=== PATIENT | female | born 1970 | race Caucasian/White ===

== ENCOUNTER 2019-06-02 12:57 | Outpatient (RCR) | payer OTHER, SELFPAY | END 2019-08-31 23:59 | disposition home or self-care (01) | LOC: ANHDMC 12:57 | PROVIDERS: PCP Family Medicine; Visit Provider Family Medicine | DX: E11.65 Type 2 diabetes mellitus with hyperglycemia (principal); Z71.89 Other specified counseling | CPT/HCPCS: G0108 ==

== ENCOUNTER 2020-04-06 08:25 | Outpatient (CLI) | payer BC, SELFPAY ==
--- NOTE | 2020-04-06 08:26 | ECG_ITS ---
Measurements Intervals [place] Rate: 71 P: -5 DC: 166 QRS: 21 QRSD: 85 T: 1 QT: 381 QTc: 414 Interpretive Statements SINUS RHYTHM BORDERLINE ST-T WAVE ABNORMALITY- INFERIOR LEADS BASELINE ARTIFACT- I, II, III, AVR, AVL, AVF BORDERLINE ECG Electronically Signed On 04-06-2020 8:47:37 CDT by Timur Nunez D.O.
[2020-04-06 09:02] LABS: Anion Gap 9 mmol/L (8-16); Blood Urea Nitrogen 10 mg/dL (7-17); Carbon Dioxide 27 mmol/L (22-30); Chloride 104 mmol/L (98-107); Estimated Glomerular Filt Rate > 60; Glucose 178 mg/dL (65-105); Potassium 4.1 mmol/L (3.4-5.0); Sodium 140 mmol/L (137-145)
[2020-04-06 09:05] LABS: Hematocrit 43.2 % (37.0-47.0); Hemoglobin 14.4 g/dL (12.0-15.0)
== END 2020-04-06 08:26 | disposition home or self-care (01) ==
PROVIDERS: Anesthesiology; PCP Family Medicine; Visit Provider Obstetrics & Gynecology Gynecology
DX: E11.59 Type 2 diabetes mellitus with other circulatory complications (principal); N92.0 Excessive and frequent menstruation with regular cycle; Z01.818 Encounter for other preprocedural examination; R94.31 Abnormal electrocardiogram [ECG] [EKG]
CPT/HCPCS: 36415; 80048; 85014; 85018; 93005

== ENCOUNTER 2020-04-09 02:56 | Outpatient (CLI) | payer BC, SELFPAY ==
[2020-04-09 18:02] LABS: SARS-CoV-2 RNA PCR Negative
== END 2020-04-09 02:57 | disposition home or self-care (01) ==
LOC: ANHCOVIDDT 02:57
PROVIDERS: PCP Family Medicine; Visit Provider Obstetrics & Gynecology Gynecology
DX: Z01.812 Encounter for preprocedural laboratory examination (principal); Z20.828 Contact with and (suspected) exposure to other viral communicable diseases
CPT/HCPCS: 87635; C9803; U0003

== ENCOUNTER 2020-04-12 01:58 | Day surgery (SDC) | payer BC, SELFPAY ==
[2020-03-29 12:23] VITALS: BMI 37.8
[2020-04-12] VITALS (8 sets, daily range): BP systolic 154–165; BP diastolic 68–93; PULSE 62–96; RESP 13–18; TEMP 36.2–37.1; O2SAT 95–100
[2020-04-12] MEDS: ACETAMINOPHEN 500 MG TABLET 1000 MG PO (07:16)
--- NOTE | 2020-04-12 07:17 | WPDANESEPPF ---
Anes - Initial Pre Proc Eval Procedure: Operation Date: 04/12/20 08:15 Proposed Procedures p Hysteroscopy Dilation and Curettage - Eulalia Chambers MD Date/Time: 04/12/20 07:17 Surgeon: Eulalia Chambers MD Pre Op Diagnosis: Menorrhagia Patient Data Age: 49 Gender: F Height: 5 ft 4 in Weight: 99.79 kg Allergies Allergy/AdvReac Type Severity Reaction Status Date / Time meperidine Allergy Severe Vomiting Verified 03/29/20 12:24 codeine Allergy Intermediate breathing Verified 03/29/20 12:25 difficulty midazolam [From Versed] AdvReac CRYING Verified 03/29/20 12:25 Home Medications Medication Instructions Recorded Confirmed Type cholecalciferol (vitamin D3) 50 2,000 unit PO DAILY 05/05/19 03/29/20 History mcg (2,000 unit) tablet diazepam 2 mg tablet 0.5 mg PO HS 05/05/19 03/29/20 History multivitamin 1 tablet PO DAILY 05/05/19 03/29/20 History omega-3 fatty acids 1,000 mg 1,000 mg PO DAILY 05/05/19 03/29/20 History capsule vitamin B12 500 mcg-folic acid 400 1 tablet PO DAILY 05/05/19 03/29/20 History mcg tablet empagliflozin 10 mg tablet 10 mg PO DAILY #90 tablet 10/31/19 03/29/20 Rx levothyroxine 150 mcg tablet 150 mcg PO DAILY #90 tablet 12/22/19 03/29/20 Rx sitagliptin 50 mg tablet 50 mg PO DAILY #90 tablet 03/08/20 03/29/20 Rx CoQ-10 1 tablet PO DAILY 03/29/20 03/29/20 History ferrous sulfate See Rx Instructions .ROUTE .COMPLEX 03/29/20 03/29/20 History omeprazole magnesium [Prilosec OTC] 20 mg PO QPM 03/29/20 03/29/20 History Patient hx anesthesia problems: none Family hx anesthesia problems: none PMFSH Past Medical History Medical History Adhesive capsulitis of right shoulder associated with type 2 diabetes mellitus (~2009) Cabezas's esophagus with esophagitis (~1994) Breathing problem (~2015) Class 2 severe obesity with serious comorbidity and body mass index (BMI) of 38.0 to 38.9 in adult (~12/2018) Class 3 severe obesity with serious comorbidity and body mass index (BMI) of 40.0 to 44.9 in adult (~2009) Encounter for comprehensive diabetic foot examination, type 2 diabetes mellitus (~12/2018) Encounter for counseling regarding immunization Hyperlipidemia, unspecified (~2005) Hypothyroidism (acquired) (~2005) OCD (obsessive compulsive disorder) (~2005) Vitamin B12 deficiency anemia due to intrinsic factor deficiency (~2015) Vitamin D deficiency, unspecified (~2015) Surgical History Surgical History Aftercare following left ankle joint replacement surgery (~1992) Fracture subluxation of perilunate joint of right wrist with routine healing (~2005) S/P cholecystectomy (~2002) S/P tonsillectomy (~1997) Family History Family History Mother Family history of osteoporosis Patient's mother is in good health Father Family history of lung cancer, Onset Age: 64 Acute myocardial infarction, Onset Age: 64 Grandparent Family history of lung cancer, Onset Age: 94 Family history of malignant neoplasm of breast, Onset Age: 63 Other Diabetes mellitus Family history of malignant neoplasm Social History Social History Social History: Immunization: TdaP: 2017; declines flu vaccine since ADR 2015 Smoking status: Never smoker Second hand tobacco smoke exposure: No Alcohol intake: never Substance use: never 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 Gender identity (if verbalized by the patient): Female Spiritual care concerns: No Agree to blood products: Yes Anes - Eval Final PreProcedure Day of Procedure 04/12/20 07:17 Patient weight: obese Heart: regular rate and rhythm Lungs: clear to auscultation Airway: Mallampati scale class 1 Neurological: alert an
--- NOTE | 2020-04-12 07:30 | PM.HPGS ---
History of Present Illness History of Present Illness Consent: Risks, benefits, and alternatives have been discussed and questions answered. Patient agrees to proceed with procedure. Chief complaint: Menorrhagia Narrative: Ny Shetty is a 49 year old female with prolonged bleeding episode lasting 3 weeks. Recommend work up and patient agrees. Plan hysteroscopy with D&C. Reviewed risks of infection, bleeding, and perforation. Discussed possible pathology. [facility] Past Medical History Medical History (Updated 04/12/20 @ 08:07 by Eulalia Chambers MD) Anxiety Cabezas's esophagus with esophagitis (~1994) Depression Hyperlipidemia, unspecified (~2005) Hypothyroidism (acquired) (~2005) OCD (obsessive compulsive disorder) (~2005) Type 2 diabetes mellitus Vitamin B12 deficiency anemia due to intrinsic factor deficiency (~2015) Vitamin D deficiency, unspecified (~2015) Surgical History Surgical History (Updated 04/12/20 @ 08:07 by Eulalia Chambers MD) S/P bilateral breast reduction S/P cholecystectomy (~2002) S/P tonsillectomy (~1997) S/P wrist surgery Status post hysteroscopic polypectomy 2014, 2018 Family History Family History Mother Family history of osteoporosis Patient's mother is in good health Father Family history of lung cancer, Onset Age: 64 Acute myocardial infarction, Onset Age: 64 Grandparent Family history of lung cancer, Onset Age: 94 Family history of malignant neoplasm of breast, Onset Age: 63 Other Diabetes mellitus Family history of malignant neoplasm Social History Social History Social History: Immunization: TdaP: 2017; declines flu vaccine since ADR 2015 Smoking status: Never smoker Second hand tobacco smoke exposure: No Alcohol intake: never Substance use: never 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 Gender identity (if verbalized by the patient): Female Spiritual care concerns: No Agree to blood products: Yes Meds Home Medications and Allergies Home Medications Medication Instructions Recorded Confirmed Type cholecalciferol (vitamin D3) 50 2,000 unit PO DAILY 05/05/19 03/29/20 History mcg (2,000 unit) tablet diazepam 2 mg tablet 0.5 mg PO HS 05/05/19 03/29/20 History multivitamin 1 tablet PO DAILY 05/05/19 03/29/20 History omega-3 fatty acids 1,000 mg 1,000 mg PO DAILY 05/05/19 03/29/20 History capsule vitamin B12 500 mcg-folic acid 400 1 tablet PO DAILY 05/05/19 03/29/20 History mcg tablet empagliflozin 10 mg tablet 10 mg PO DAILY #90 tablet 10/31/19 03/29/20 Rx levothyroxine 150 mcg tablet 150 mcg PO DAILY #90 tablet 12/22/19 03/29/20 Rx sitagliptin 50 mg tablet 50 mg PO DAILY #90 tablet 03/08/20 03/29/20 Rx CoQ-10 1 tablet PO DAILY 03/29/20 03/29/20 History ferrous sulfate See Rx Instructions .ROUTE .COMPLEX 03/29/20 03/29/20 History omeprazole magnesium [Prilosec OTC] 20 mg PO QPM 03/29/20 03/29/20 History Allergies Allergy/AdvReac Type Severity Reaction Status Date / Time meperidine Allergy Severe Vomiting Verified 04/12/20 07:47 codeine Allergy Intermediate breathing Verified 04/12/20 07:47 difficulty midazolam [From Versed] AdvReac CRYING Verified 04/12/20 07:47 Exam Const: General: comfortable : External Female Exam: other (errythema, edema) Speculum Exam - Vagina: vaginal bleeding Speculum Exam - Cervix: normal appearance of the cervix Bimanual exam- vagina & uterus: normal bimanual exam Assessment and Plan Assessment and plan (1) Menorrhagia: Code(s): N92.0 - Excessive and frequent menstruation with regular cycle Status: Acute Assessment and Plan: Plan to proceed with hysteroscopy with D&C
[2020-04-12] MEDS: LACTATED RINGERS 1,000 ML 30 ML IV CONT (07:36)
[2020-04-12 07:39] LABS: Glucose Point of Care 181 (65-105)
--- NOTE | 2020-04-12 08:07 | WPDHPUPDATE1 ---
History and Physical Update Update Date/Time: 04/12/20 08:07 History and Physical has been reviewed, including an updated exam of the patient. There are NO changes in the patient's condition. Risks, benefits, and alternatives have been discussed and questions answered. Patient agrees to proceed with procedure.
--- NOTE | 2020-04-12 09:07 | SUR.OPER ---
EBL:10cc
--- NOTE | 2020-04-12 09:08 | PM.PROC ---
Procedure Note - Detailed Date of procedure: 04/12/20 Pre-op diagnosis: Menorrhagia Post-op diagnosis: same Procedure performed: hysteroscopy with myosure resection of polyp and D&C Description of procedure: The patient is taken to the operating room and placed in the dorsal lithotomy position under anesthesia. She was prepped and draped in usual sterile manner. The bivalve speculum was placed in the vagina and the cervix grasped with a tenaculum anteriorly. The uterus is sounded to 9cm and the cervix serially dilated with Hegars. The diagnostic hysteroscope was placed with the stated findings. The MyoSure device is opened and placed. Under direct visualization the large polyp is removed using the MyoSure device. The hysteroscope was removed and a sharp curette is used to sharply curette the endometrium until a good uterine cry is noted in all areas. All instruments were then removed. Anesthesia: MAC and local Surgeon: Eulalia Chambers MD Estimated blood loss (mL): 5 Drains: No Packing: No Pathology: yes (endometrial curettings and shavings) Complications: No immediate complications Condition: stable Disposition: PACU Findings: uterus 9 cm; large polyp from right lateral uterine side wall; otherwise grossly normal appearing endometrium
[2020-04-12] MEDS: ONDANSETRON INJ 4 MG/2 ML VIAL IV PUSH (09:55)
[2020-04-12 10:09] LABS: Glucose Point of Care 162 (65-105)
[2020-04-12] MEDS: FAMOTIDINE 20 MG/2 ML VIAL IV PUSH (11:09)
== END 2020-04-12 12:10 | disposition home or self-care (01) ==
PROVIDERS: PCP Family Medicine; Visit Provider Obstetrics & Gynecology Gynecology
PROC: 0U5B8ZZ Destruction of Endometrium, Via Natural or Artificial Opening Endoscopic (ICD-10-PCS; CPT 58563; principal; 2020-04-12 08:15)
DX: N92.0 Excessive and frequent menstruation with regular cycle (principal); E11.9 Type 2 diabetes mellitus without complications; E78.5 Hyperlipidemia, unspecified; E03.9 Hypothyroidism, unspecified; E55.9 Vitamin D deficiency, unspecified; D51.0 Vitamin B12 deficiency anemia due to intrinsic factor deficiency; F42.8 Other obsessive-compulsive disorder; Z79.84 Long term (current) use of oral hypoglycemic drugs; E66.9 Obesity, unspecified; Z68.38 Body mass index [BMI] 38.0-38.9, adult
CPT/HCPCS: 58558; 88305; A9270; J1885; J2405; J2704; J3010; J7030; J7120

== ENCOUNTER 2020-08-18 15:47 | Outpatient (CLI) | payer BC, SELFPAY | END 2020-08-18 15:48 | disposition home or self-care (01) | LOC: ANHCOVIDVC 15:47 | PROVIDERS: PCP Family Medicine | DX: Z23 Encounter for immunization (principal) | CPT/HCPCS: 0001A; 91300 ==

== ENCOUNTER 2020-09-08 09:24 | Outpatient (CLI) | payer BC, SELFPAY ==
--- NOTE | ~2020-09-08 | US_ITS ---
EXAMINATION: US pelvic complete w TV EXAM DATE: 09/08/2020 10:03 INDICATION: Pelvic inflammatory disease. TECHNIQUE: Pelvic transabdominal and transvaginal sonogram was performed. There are multiple graysca le and Doppler images available for interpretation. Comparison is made to prior examination from 06/23. FINDINGS: Uterus measures 9.4 x 4.1 x 5.5 cm, is anteverted with small posterior myometrial fibroid measuring up to 1.7 cm. Endometrial stripe measures 5 mm, within normal limits. There is no free pel hallie fluid. Right adnexa: The ovary measures 2.4 x 1.6 x 1.8 cm and is morphologically normal. Ovarian vascular f low confirmed. Left adnexa: The ovary measures 3.0 x 2.1 x 2.1 cm and is morphologically normal. Ovarian vascular fl ow confirmed. IMPRESSION: Small fibroid. No evidence of hydrosalpinx or tubo-ovarian abscess. Reviewed, dictated and finalized at location A.
== END 2020-09-08 09:25 | disposition home or self-care (01) ==
PROVIDERS: PCP Family Medicine; Visit Provider Obstetrics & Gynecology Gynecology
DX: D25.9 Leiomyoma of uterus, unspecified (principal); N73.9 Female pelvic inflammatory disease, unspecified
CPT/HCPCS: 76830; 76856

== ENCOUNTER 2020-09-09 13:17 | Outpatient (CLI) | payer BC, SELFPAY | END 2020-09-09 13:18 | disposition home or self-care (01) | LOC: ANHCOVIDVC 13:17 | PROVIDERS: PCP Family Medicine | DX: Z23 Encounter for immunization (principal) | CPT/HCPCS: 0002A; 91300 ==

== ENCOUNTER → 2020-10-22 10:19 | Outpatient (CLI) | payer BC, SELFPAY ==
--- NOTE | ~2020-10-22 | MM_ITS ---
EXAMINATION: MM screening [facility] BI w darlene HISTORY: Screening mammogram TECHNIQUE: Craniocaudal and mediolateral oblique 3-D tomosynthesis images were obtained and synthetic 2-D images were generated. CAD analysis was submitted and interpreted. COMPARISON: 05/23/2019, 03/22/2018, 06/02/2017 BREAST PARENCHYMAL COMPOSITION: There are scattered areas of fibroglandular density. FINDINGS: There is no evidence of suspicious mass, calcification, or architectural distortion to sugg est malignancy in either breast. There has been no suspicious interval change. IMPRESSION: 1. No mammographic evidence of malignancy. 2. Recommend routine screening mammography in one year. BI-RADS Category 1: Negative Reviewed, dictated and finalized at location A.
== END ==
PROVIDERS: PCP Nurse Practitioner; Visit Provider Obstetrics & Gynecology Gynecology
DX: Z12.31 Encounter for screening mammogram for malignant neoplasm of breast (principal)
CPT/HCPCS: 77063; 77067

== ENCOUNTER → 2021-10-24 16:13 | Outpatient (CLI) | payer BC, SELFPAY ==
--- NOTE | ~2021-10-24 | MM_ITS ---
EXAMINATION: MM screening [facility] BI w darlene HISTORY: Screening mammogram TECHNIQUE: Craniocaudal and mediolateral oblique 3-D tomosynthesis images were obtained and synthetic 2-D images were generated. CAD analysis was submitted and interpreted. COMPARISON: 10/22/2020, 05/23/2019, 03/22/2018 BREAST PARENCHYMAL COMPOSITION: There are scattered areas of fibroglandular density. FINDINGS: Scattered benign-appearing calcifications are present. There is no suspicious mass, calcifi cation, or architectural distortion to suggest malignancy in either breast. There has been no suspici ous interval change. IMPRESSION: 1. No mammographic evidence of malignancy. 2. Recommend routine screening mammography in one year. BI-RADS Category 2: Benign finding(s). Reviewed, dictated and finalized at location A.
== END ==
PROVIDERS: PCP Nurse Practitioner; Visit Provider Obstetrics & Gynecology Gynecology
DX: Z12.31 Encounter for screening mammogram for malignant neoplasm of breast (principal)
CPT/HCPCS: 77063; 77067

== ENCOUNTER 2022-03-30 01:46 | Day surgery (SDC) | payer BC, SELFPAY ==
[2022-03-16 12:47] VITALS: BMI 40.2
--- NOTE | 2022-03-29 14:28 | PM.HPGS ---
History of Present Illness History of Present Illness Consent: Risks, benefits, and alternatives have been discussed and questions answered. Patient agrees to proceed with procedure. Chief complaint: hx colon polyps, neoplasm, falcon's Esophagus Narrative: Ny Shetty is a 51 year old female With chronic acid reflux. She has a history of having Barretts esophagus. Biopsy done at the time of her last EGD in 2019 did not show intestinal metaplasia. She has history of colon polyps. Review of Systems Review of Systems: All systems reviewed & are unremarkable except as noted in HPI and below PMFSH Past Medical History Medical History Anxiety Falcon's esophagus with esophagitis (~1994) Bursitis of right shoulder (~2009) Depression Hyperlipidemia, unspecified (~2005) Hypothyroidism (acquired) (~2005) OCD (obsessive compulsive disorder) (~2005) Skin neoplasm Type 2 diabetes mellitus Vitamin B12 deficiency anemia due to intrinsic factor deficiency (~2015) Vitamin D deficiency, unspecified (~2015) Surgical History Surgical History S/P bilateral breast reduction S/P cholecystectomy (~2002) S/P tonsillectomy (~1997) S/P wrist surgery Status post cervical polyp removal Status post hysteroscopic polypectomy 2014, 2018 Family History Family History Mother Family history of osteoporosis Patient's mother is in good health Father Family history of lung cancer, Onset Age: 64 Acute myocardial infarction, Onset Age: 64 Grandparent Family history of lung cancer, Onset Age: 94 Family history of malignant neoplasm of breast, Onset Age: 63 Other Diabetes mellitus Family history of malignant neoplasm Social History Social History Social History: Immunization: TdaP: 2017; declines flu vaccine since ADR 2015 Smoking status: Never smoker Second hand tobacco smoke exposure: No Alcohol intake: never Substance use: never Substance use type: does not use Living arrangements: alone 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 Gender identity (if verbalized by the patient): Female Spiritual care concerns: No Agree to blood products: Yes Meds Home Medications and Allergies Home Medications Medication Instructions Recorded Confirmed Type cholecalciferol (vitamin D3) 50 2,000 unit PO DAILY 05/05/19 03/30/22 History mcg (2,000 unit) tablet multivitamin 1 tablet PO DAILY 05/05/19 03/30/22 History omega-3 fatty acids 1,000 mg 1,000 mg PO DAILY 05/05/19 03/30/22 History capsule vitamin B12 500 mcg-folic acid 400 1 tablet PO DAILY 05/05/19 03/30/22 History mcg tablet CoQ-10 100 mg PO 2XW 03/29/20 03/30/22 History semaglutide 0.25 mg or 0.5 mg (2 0.5 mg subcut DAILY 10/25/20 03/30/22 History mg/1.5 mL) subcutaneous pen injector blood sugar diagnostic (OneTouch #100 ea 02/11/21 03/30/22 Rx Ultra Test strips) diazepam 2 mg tablet (Valium) 0.5 mg PO HS #30 tabs 10/31/21 03/30/22 Rx glimepiride 1 mg tablet 2 mg PO BID 12/06/21 03/30/22 History omeprazole 20 mg capsule,delayed 20 mg PO DAILY 12/06/21 03/30/22 History release Iron (ferrous sulfate) See Rx Instructions .Route .COMPLEX 03/16/22 03/30/22 History Lacto no.51-B.animalis 30 billion 1 cap PO 2XW 03/16/22 03/30/22 History cell-inulin 50 mg capsule,delay rel (Fortify Women Probiotic) ascorbate sodium (vitamin C) 30 mg PO 2XW 03/16/22 03/30/22 History folic acid 400 mcg tablet 0.4 mg PO 2XW 03/16/22 03/30/22 History ketorolac 10 mg tablet 10 mg PO DAILY PRN Pain 03/16/22 03/30/22 History levothyroxine 150 mcg tablet 150 mcg PO DAILY 03/16/22 03/30/22 History (Synthroid) milk thistle 140 mg capsule 140 mg PO 2XW 03/16/22 03/30/22 History s
[2022-03-30 06:48] VITALS: BP 148/81; PULSE 92; RESP 16; TEMP 36.9; O2SAT 99; BMI 39.9
[2022-03-30 07:05] LABS: Glucose Point of Care 183 mg/dl (65-105)
[2022-03-30] MEDS: LACTATED RINGERS 1,000 ML 150 ML IV CONT (07:05)
--- NOTE | 2022-03-30 08:01 | WPDANESEPPF ---
Anes - Initial Pre Proc Eval Procedure: Operation Date: 03/30/22 08:00 Proposed Procedures p Esophagogastroduodenoscopy & Screening Colonoscopy - Wilton Alonso MD Date/Time: 03/30/22 08:01 Surgeon: Wilton Alonso MD Pre Op Diagnosis: hx colon polyps, neoplasm, falcon's Esophagus Patient Data Age: 51 Gender: F Height: 1.63 m Weight: 105.4 kg Last Vital Signs Temp 98.4 F 03/30/22 06:48 Pulse 92 03/30/22 06:48 Resp 16 03/30/22 06:48 BP 148/81 H 03/30/22 06:48 Pulse Ox 99 03/30/22 06:48 O2 Del Method Room Air 03/30/22 06:48 Allergies Allergy/AdvReac Type Severity Reaction Status Date / Time codeine Allergy Intermediate breathing Verified 03/30/22 06:46 difficulty meperidine AdvReac Severe Vomiting Verified 03/30/22 06:46 Home Medications Medication Instructions Recorded Confirmed Type cholecalciferol (vitamin D3) 50 2,000 unit PO DAILY 05/05/19 03/30/22 History mcg (2,000 unit) tablet multivitamin 1 tablet PO DAILY 05/05/19 03/30/22 History omega-3 fatty acids 1,000 mg 1,000 mg PO DAILY 05/05/19 03/30/22 History capsule vitamin B12 500 mcg-folic acid 400 1 tablet PO DAILY 05/05/19 03/30/22 History mcg tablet CoQ-10 100 mg PO 2XW 03/29/20 03/30/22 History semaglutide 0.25 mg or 0.5 mg (2 0.5 mg subcut DAILY 10/25/20 03/30/22 History mg/1.5 mL) subcutaneous pen injector blood sugar diagnostic (OneTouch #100 ea 02/11/21 03/30/22 Rx Ultra Test strips) diazepam 2 mg tablet (Valium) 0.5 mg PO HS #30 tabs 10/31/21 03/30/22 Rx glimepiride 1 mg tablet 2 mg PO BID 12/06/21 03/30/22 History omeprazole 20 mg capsule,delayed 20 mg PO DAILY 12/06/21 03/30/22 History release Iron (ferrous sulfate) See Rx Instructions .Route .COMPLEX 03/16/22 03/30/22 History Lacto no.51-B.animalis 30 billion 1 cap PO 2XW 03/16/22 03/30/22 History cell-inulin 50 mg capsule,delay rel (Fortify Women Probiotic) ascorbate sodium (vitamin C) 30 mg PO 2XW 03/16/22 03/30/22 History folic acid 400 mcg tablet 0.4 mg PO 2XW 03/16/22 03/30/22 History ketorolac 10 mg tablet 10 mg PO DAILY PRN Pain 03/16/22 03/30/22 History levothyroxine 150 mcg tablet 150 mcg PO DAILY 03/16/22 03/30/22 History (Synthroid) milk thistle 140 mg capsule 140 mg PO 2XW 03/16/22 03/30/22 History selenium 100 mcg capsule 100 mcg PO 2XW 03/16/22 03/30/22 History Laboratory Tests 03/30/22 06:57 POC Capillary Glucose 183 mg/dl H mg/dl (65-105) Patient hx anesthesia problems: none Family hx anesthesia problems: none Results Review: All pre-operative results and documents have been reviewed as part of the pre-operative evaluation. [facility] Past Medical History Medical History Anxiety Falcon's esophagus with esophagitis (~1994) Bursitis of right shoulder (~2009) Depression Hyperlipidemia, unspecified (~2005) Hypothyroidism (acquired) (~2005) OCD (obsessive compulsive disorder) (~2005) Skin neoplasm Type 2 diabetes mellitus Vitamin B12 deficiency anemia due to intrinsic factor deficiency (~2015) Vitamin D deficiency, unspecified (~2015) Surgical History Surgical History S/P bilateral breast reduction S/P cholecystectomy (~2002) S/P tonsillectomy (~1997) S/P wrist surgery Status post cervical polyp removal Status post hysteroscopic polypectomy 2014, 2018 Family History Family History Mother Family history of osteoporosis Patient's mother is in good health Father Family history of lung cancer, Onset Age: 64 Acute myocardial infarction, Onset Age: 64 Grandparent Family history of lung cancer, Onset Age: 94 Family history of malignant neoplasm of breast, Onset Age: 63 Other Diabetes mellitus Family history of malignant neoplasm Social History Social History (Reviewed 03/30/22 @ 07
--- NOTE | 2022-03-30 08:16 | SUR.OPER ---
EGD: [id number] COLON: [id number]
[2022-03-30 08:33] VITALS: BP 128/78; PULSE 78; RESP 19; O2SAT 99
[2022-03-30 08:43] VITALS: BP 150/75; PULSE 78; RESP 18; O2SAT 100
[2022-03-30 08:53] VITALS: BP 133/81; PULSE 77; RESP 18; O2SAT 100
== END 2022-03-30 09:10 | disposition home or self-care (01) ==
PROVIDERS: PCP Nurse Practitioner; Visit Provider Internal Medicine Gastroenterology
PROC: 0DJ08ZZ Inspection of Upper Intestinal Tract, Via Natural or Artificial Opening Endoscopic (ICD-10-PCS; CPT 43235; principal; 2022-03-30 08:00)
DX: Z12.11 Encounter for screening for malignant neoplasm of colon (principal); Z86.010 Personal history of colon polyps; K21.9 Gastro-esophageal reflux disease without esophagitis; E11.9 Type 2 diabetes mellitus without complications; E78.5 Hyperlipidemia, unspecified; E03.9 Hypothyroidism, unspecified; E55.9 Vitamin D deficiency, unspecified; D51.0 Vitamin B12 deficiency anemia due to intrinsic factor deficiency; F42.8 Other obsessive-compulsive disorder; F41.9 Anxiety disorder, unspecified; F32.A Depression, unspecified; Z87.19 Personal history of other diseases of the digestive system; Z79.899 Other long term (current) drug therapy; Z79.84 Long term (current) use of oral hypoglycemic drugs; E66.01 Morbid (severe) obesity due to excess calories; Z68.39 Body mass index [BMI] 39.0-39.9, adult
CPT/HCPCS: 45378; 43239; 82948; 88305; J2704; J3010; J7120

== ENCOUNTER 2022-06-05 12:07 | Observation (INO) | payer BC, SELFPAY ==
[2022-06-05] VITALS (13 sets, daily range): BP systolic 104–188; BP diastolic 60–96; PULSE 66–99; RESP 13–19; TEMP 36.1–36.4; O2SAT 92–100; BMI 39.3
--- NOTE | ~2022-06-05 | XR_ITS ---
EXAMINATION: XR retrograde pyelo w/stent LT DATE: 06/05/2022 16:40 RAISIN WASHER INDICATION: Left retrograde w/ stent placement . TECHNIQUE: 4 fluoroscopic images of the abdomen and pelvis were obtained during left retrograde pyelo graphy with stent placement performed by the surgeon. I was not present in the operating room. Fluoro scopy exposure time was 48.2 seconds. DAP [id number] mGym2. COMPARISON: CT abdomen pelvis, same date FINDINGS: Small calcification projecting over the left urinary bladder in the attendant self service store view may represent the prev iously detected left UVJ stone. Wire access to the left collecting system followed by stent deploymen t with the proximal coil in a lower pole calyx and the distal coil overlying the bladder. IMPRESSION: Fluoroscopic documentation of left retrograde pyelography with stent placement. Please refer to the o perative note for complete procedural details . Reviewed, dictated and finalized at location K. IN WASHER IMPRESSION: Fluoroscopic documentation of left retrograde pyelography with stent placement. Please refer to the operative note for complete procedural details .
--- NOTE | ~2022-06-05 | CT_ITS ---
EXAMINATION: CT abdomen pelvis wo con DATE: 06/05/2022 13:18 INDICATION: Left flank pain, nausea and vomiting TECHNIQUE: Computed tomography (CT) of the abdomen and pelvis was performed without intravenous contr ast. Automated exposure control and iterative reconstruction technique were employed. The dose-length product was 1424.69 mGy-cm. COMPARISON: None FINDINGS: Small calcified right lower lobe nodule consistent with old granulomatous disease. Heart size is norm al. No pericardial or pleural effusion. Small sliding-type hiatal hernia. There is an ill-defined gabriella roximately 3-3.5 cm region of decreased hepatic attenuation along the genesis hepatis with location and appearance suggesting focal fat. Cholecystectomy clips at the gallbladder fossa. Mild splenomegaly m easuring 15.4 cm in maximal length which is likely related to body habitus. Pancreas, bilateral adren al glands and right kidney are normal. 3 mm at least partially obstructing stone at the left ureterov esicular junction with mild left hydroureteronephrosis and minimal stranding about the distal left ur eter. There is an additional 1 mm nonobstructing stone in a lower pole calyx of the left kidney. No r ight-sided urolithiasis. 11 mm exophytic cyst at the lower pole of the left kidney. Small bowel and a ppendix are normal. There is fatty infiltration of the wall of the proximal colon likely related to b tirso habitus. There are few scattered clonic diverticula without adjacent inflammatory change to sugge st diverticulitis. Decompressed bladder, anteverted uterus and bilateral adnexa are unremarkable. No free intraperitoneal gas or fluid. No pathologically enlarged abdominal or pelvic lymphadenopathy. Mi ld thoracolumbar spondylosis. IMPRESSION: 1. Likely at least partially obstructing 3 mm stone at the left ureterovesicular junction with mild l eft hydroureteronephrosis and minimal periureteral stranding. Correlate with urinalysis to exclude as sociated ascending urinary tract infection. 2. 3-3.5 cm ill-defined region of decreased attenuation along the genesis hepatis most likely related t o focal hepatic steatosis but would recommend further evaluation with pre and postcontrast MRI. 2. Small sliding-type hiatal hernia. Reviewed, dictated and finalized at location A. ATING COST CLERK IMPRESSION: 1. Likely at least partially obstructing 3 mm stone at the left ureterovesicula r junction with mild left hydroureteronephrosis and minimal periureteral strand ing. Correlate with urinalysis to exclude associated ascending urinary tract in fection. 2. 3-3.5 cm ill-defined region of decreased attenuation along the genesis hepatis most likely related to focal hepatic steatosis but would recommend further myaito luation with pre and postcontrast MRI. 2. Small sliding-type hiatal hernia.
[2022-06-05 13:04] LABS: Basophils Absolute Auto 0.1 K/mm3 (0.0-0.1); Basophils Percent Auto 0.5 % (0.2-1.2); Eosinophils Absolute Auto 0.2 K/mm3 (0-0.3); Eosinophils Percent Auto 1.4 % (0-4.4); Hematocrit 37.4 % (37.0-47.0); Hemoglobin 12.3 g/dL (12.0-15.0); Immature Granulocyte Absolute 0.05 K/mm3 (0.00-0.031); Immature Granulocyte Percent A 0.5 % (0-0.5); Lymphocytes Absolute Auto 2.95 K/mm3 (0.9-3.2); Lymphocytes Percent Auto 27.4 % (18.3-44.2); Mean Corpuscular HGB Conc 32.9 g/dl (32-36); Mean Corpuscular Hemoglobin 28.9 pg (26-34); Mean Corpuscular Volume 87.8 fl (80-100); Mean Platelet Volume 11.7 fl (7.4-10.4); Monocytes Absolute Auto 0.8 K/mm3 (0.1-0.6); Monocytes Percent Auto 7.2 % (2.6-8.5); Neutrophils Absolute Auto 6.8 K/mm3 (1.3-6.7); Platelet Count Result 235 k/mm3 (150-375); Red Blood Count 4.26 M/mm3 (4.2-5.4); Red Cell Distribution Width 13.4 % (11.5-14.5); White Blood Count 10.8 K/mm3 (4.5-10.0)
--- NOTE | 2022-06-05 13:04 | ED.ABDPAIN ---
HPI - Abdominal Pain General Chief Complaint: Abdominal Pain Stated Complaint: n/v possible kidney stone Time Seen by Provider: 06/05/22 12:47 History of Present Illness HPI narrative: Patient is a 31-year-old female here for evaluation of left flank pain over the past day. Patient states the pain starts in her left flank and radiates around to her groin. Also reports nausea and vomiting. Pain is severe in nature. She has not taken any medicine for her pain. No history of kidney stones. No fevers, chills, dysuria, urgency or frequency. No chest pain or shortness of breath. Patient states she is currently on her menstrual cycle and unable to assess for blood in her urine. Related Data Home Medications Medication Instructions Recorded Confirmed cholecalciferol (vitamin D3) 50 2,000 unit PO DAILY 05/05/19 06/05/22 mcg (2,000 unit) tablet multivitamin 1 tablet PO DAILY 05/05/19 06/05/22 omega-3 fatty acids 1,000 mg 1,000 mg PO DAILY 05/05/19 06/05/22 capsule vitamin B12 500 mcg-folic acid 400 1 tablet PO DAILY 05/05/19 06/05/22 mcg tablet CoQ-10 100 mg PO WEEKLY 03/29/20 06/05/22 semaglutide 0.25 mg or 0.5 mg (2 0.75 mg subcut WEEKLY 10/25/20 06/05/22 mg/1.5 mL) subcutaneous pen injector omeprazole 20 mg capsule,delayed 20 mg PO DAILY 12/06/21 06/05/22 release Iron (ferrous sulfate) See Rx Instructions .Route .COMPLEX 03/16/22 06/05/22 Lacto no.51-B.animalis 30 billion 1 cap PO DAILY 03/16/22 06/05/22 cell-inulin 50 mg capsule,delay rel (Fortify Women Probiotic) ascorbate sodium (vitamin C) 30 mg PO 2XW 03/16/22 06/05/22 ketorolac 10 mg tablet 10 mg PO DAILY PRN Pain 03/16/22 06/05/22 levothyroxine 150 mcg tablet 150 mcg PO DAILY 03/16/22 06/05/22 (Synthroid) selenium 100 mcg capsule 100 mcg PO WEEKLY 03/16/22 06/05/22 glimepiride 2 mg tablet 4 mg PO BID 05/09/22 06/05/22 Allergies Allergy/AdvReac Type Severity Reaction Status Date / Time codeine Allergy Intermediate breathing Verified 05/09/22 13:30 difficulty meperidine AdvReac Severe Vomiting Verified 05/09/22 13:30 Review of Systems Review of Systems: Gen.: Denies fevers or chills Eyes: Denies eye pain or visual change ENT: Denies congestion Respiratory: Denies shortness of breath or cough CV: Denies chest pain or palpitations GI: Reports nausea and vomiting. Denies abdominal pain or diarrhea denies burning, urgency, frequency or hematuria Musculoskeletal: Reports left flank pain Neuro: Denies numbness, tingling, weakness or focal weakness Skin: Denies rash Except as documented, all other systems reviewed and negative [facility] Past Medical History Medical History Anxiety Cabezas's esophagus with esophagitis (~1994) Bursitis of right shoulder (~2009) Class 3 severe obesity with serious comorbidity and body mass index (BMI) of 40.0 to 44.9 in adult (~2009) Depression Hyperlipidemia, unspecified (~2005) Hypothyroidism (acquired) (~2005) Morbid obesity Obesity OCD (obsessive compulsive disorder) (~2005) Palpitations Skin neoplasm Type 2 diabetes mellitus Vitamin B12 deficiency anemia due to intrinsic factor deficiency (~2015) Vitamin D deficiency, unspecified (~2015) Surgical History Surgical History S/P bilateral breast reduction S/P cholecystectomy (~2002) S/P tonsillectomy (~1997) S/P wrist surgery Status post cervical polyp removal Status post hysteroscopic polypectomy 2014, 2018 Family History Family History Mother Family history of osteoporosis Patient's mother is in good health Father Family history of lung cancer, Onset Age: 64 Acute myocardial infarction, Onset Age: 64 Grandparent Family history of lung cancer, Onset Age: 94 Family history of malignant neoplasm of breast, Onset Age: 63 Other Diabetes mellitus
--- NOTE | 2022-06-05 13:10 | PC.NURSE ---
pt. to ct
[2022-06-05 13:12] LABS: Add Urine Microscopic? YES; Appearance Urine Cloudy (Clear); Bilirubin Urine 1+ (Negative); Blood Urine 3+ (Negative); Glucose Urine UA Negative (Negative); Ketones Urine Trace mg/dL (Negative); Leukocyte Esterase Ur Negative LEU/UL (Negative); Nitrate Urine Positive (Negative); Protein Urine 1+ mg/dL (Negative); Specific Grav Ur >= 1.030 (1.001-1.035); Urobilinogen Urine 0.2 mg/dL (<2.0); pH Urine 5.5 (5.0-9.0)
[2022-06-05] MEDS: SODIUM CHLORIDE 0.9% IV 1,000 ML 999 ML IV CONT (13:21)
[2022-06-05] MEDS: ONDANSETRON INJ 4 MG/2 ML VIAL IV PUSH (13:22)
[2022-06-05] MEDS: HYDROmorphone HCL INJ (*CRX) 1 MG/ML SYR 0.5 MG IV PUSH (13:23)
[2022-06-05 13:27] LABS: Mucus Urine Rare /lpf; RBC Urine >75 /hpf (0-2); WBC Urine >75 /hpf
[2022-06-05 13:34] LABS: Color Urine Yellow (Yellow)
[2022-06-05] MEDS: HYDROmorphone HCL INJ (*CRX) 1 MG/ML SYR IV PUSH (13:55)
[2022-06-05 14:47] LABS: Alanine Aminotransferase 23 U/L (6-35); Albumin Level 4.2 g/dL (3.5-5.1); Alkaline Phosphatase 97 U/L (38-126); Anion Gap 11 mmol/L (8-16); Aspartate Amino Transferase 25 U/L (14-36); Bilirubin,Total 0.4 mg/dL (0.2-1.3); Blood Urea Nitrogen 12 mg/dL (7-17); Calcium 8.6 mg/dL (8.4-10.2); Carbon Dioxide 21 mmol/L (22-30); Chloride 104 mmol/L (98-107); Estimated CRCL calculation 95 ml/min; Estimated Glomerular Filt Rate > 60; Glucose 224 mg/dL (65-110); Potassium 3.8 mmol/L (3.4-5.0); Sodium 136 mmol/L (137-145)
[2022-06-05 15:04] LABS: Influenza A QL RT-PCR Negative (Negative); Influenza B QL RT-PCR Negative (Negative); SARS-CoV-2 RNA PCR Negative
--- NOTE | 2022-06-05 15:32 | WPDANESEPP ---
Anes - Eval Pre Procedure Procedure: Left cysto with stent placement Date/Time: 06/05/22 15:32 Surgeon: Mann Preop Diagnosis: Left side stone Pre Op Diagnosis: n/v possible kidney stone Patient Data Age: 51 Gender: F Height: 1.63 m Weight: 104.33 kg Last Vital Signs Temp 97.5 F L 06/05/22 12:08 Pulse 88 06/05/22 13:47 Resp 19 06/05/22 13:47 BP 185/87 H 06/05/22 13:47 Pulse Ox 99 06/05/22 14:00 Allergies Allergy/AdvReac Type Severity Reaction Status Date / Time codeine Allergy Intermediate breathing Verified 05/09/22 13:30 difficulty meperidine AdvReac Severe Vomiting Verified 05/09/22 13:30 Home Medications Medication Instructions Recorded Confirmed Type cholecalciferol (vitamin D3) 50 2,000 unit PO DAILY 05/05/19 05/09/22 History mcg (2,000 unit) tablet multivitamin 1 tablet PO DAILY 05/05/19 05/09/22 History omega-3 fatty acids 1,000 mg 1,000 mg PO DAILY 05/05/19 05/09/22 History capsule vitamin B12 500 mcg-folic acid 400 1 tablet PO DAILY 05/05/19 05/09/22 History mcg tablet CoQ-10 100 mg PO 2XW 03/29/20 05/09/22 History semaglutide 0.25 mg or 0.5 mg (2 0.5 mg subcut DAILY 10/25/20 05/09/22 History mg/1.5 mL) subcutaneous pen injector omeprazole 20 mg capsule,delayed 20 mg PO DAILY 12/06/21 05/09/22 History release Iron (ferrous sulfate) See Rx Instructions .Route .COMPLEX 03/16/22 05/09/22 History Lacto no.51-B.animalis 30 billion 1 cap PO 2XW 03/16/22 05/09/22 History cell-inulin 50 mg capsule,delay rel (Fortify Women Probiotic) ascorbate sodium (vitamin C) 30 mg PO 2XW 03/16/22 05/09/22 History folic acid 400 mcg tablet 0.4 mg PO 2XW 03/16/22 05/09/22 History ketorolac 10 mg tablet 10 mg PO DAILY PRN Pain 03/16/22 05/09/22 History levothyroxine 150 mcg tablet 150 mcg PO DAILY 03/16/22 05/09/22 History (Synthroid) milk thistle 140 mg capsule 140 mg PO 2XW 03/16/22 05/09/22 History selenium 100 mcg capsule 100 mcg PO 2XW 03/16/22 05/09/22 History blood sugar diagnostic (OneTouch #100 ea 04/05/22 05/09/22 Rx Ultra Test strips) diazepam 2 mg tablet (Valium) 0.5 mg PO HS #30 tabs 04/25/22 05/09/22 Rx glimepiride 2 mg tablet 2 mg PO BID 05/09/22 05/09/22 History Laboratory Tests 06/05/22 06/05/22 06/05/22 12:56 12:56 14:18 WBC 10.8 K/mm3 H K/mm3 (4.5-10.0) RBC 4.26 M/mm3 M/mm3 (4.2-5.4) Hgb 12.3 g/dL g/dL (12.0-15.0) Hct 37.4 % % (37.0-47.0) MCV 87.8 fl fl (80-100) MCH 28.9 pg pg (26-34) MCHC 32.9 g/dl g/dl (32-36) RDW 13.4 % % (11.5-14.5) Plt Count 235 k/mm3 k/mm3 (150-375) MPV 11.7 fl H fl (7.4-10.4) Immature Gran % (Auto) 0.5 % % (0-0.5) Neut % (Auto) 63.0 % % (45.5-73.1) Lymph % (Auto) 27.4 % % (18.3-44.2) [place] % (Auto) 7.2 % % (2.6-8.5) Eos % (Auto) 1.4 % % (0-4.4) Baso % (Auto) 0.5 % % (0.2-1.2) Lymph # (Auto) 2.95 K/mm3 K/mm3 (0.9-3.2) [place] # (Auto) 0.8 K/mm3 H K/mm3 (0.1-0.6) Eos # (Auto) 0.2 K/mm3 K/mm3 (0-0.3) Baso # (Auto) 0.1 K/mm3 K/mm3 (0.0-0.1) Abs Immat Gran (auto) 0.05 K/mm3 H K/mm3 (0.00-0.031) Absolute Neuts (auto) 6.8 K/mm3 H K/mm3 (1.3-6.7) Absolute Nucleated RBC 0.0 K/mm3 K/mm3 (0.0-0.012) Nucleated RBC % 0.0 % % (0.0-0.2) Sodium 136 mmol/L L mmol/L (137-145) Potassium 3.8 mmol/L mmol/L (3.4-5.0) Chloride 104 mmol/L mmol/L (98-107) Carbon Dioxide 21 mmol/L L mmol/L (22-30) Anion Gap 11 mmol/L mmol/L (8-16) BUN 12 mg/dL mg/dL (7-17) Creatinine 0.70 mg/dL mg/dL (0.7-1.0) Estim Creat Clear Calc 95 ml/min ml/min Estimated GFR > 60 (59 - ) Glucose 224 mg/dL H mg/dL (65-110) Calcium 8.6 mg/dL mg/dL (8.4-10.2) To
--- NOTE | 2022-06-05 15:41 | WPDURCON ---
Assessment and Plan Assessment and plan (1) Ureteral stone with hydronephrosis: Code(s): N13.2 - Hydronephrosis with renal and ureteral calculous obstruction Status: Acute (2) Ureteral stone: Code(s): N20.1 - Calculus of ureter Status: Acute Assessment and Plan: plan for cysto RPG and stent. given wbc, intractable nausea and concern for infected obstructing stone. She understands we are not treating the stone today and she will require addtional stone treatment/surgery when UTI has cleared. She understands stent is temporary and can cause permanent damage if she fails to have it removed or followup risks benefits, alternatives, nature of procedure, potential complications reviewed. -risks including but not limited to bleeding, infection, ureteral injury, stricture, trauma to surrounding/adjacent structures, inability to place stent, need for PCN from IR, the SE and temporary nature of stent reviewed including irritative voiding symptoms pain similar to kidney stone pain, he understands she will need definitive stone management in the future, additionally we discussed anesthesia risks of VT, stroke blood clots, PE, and disability. all ? answered in laymans terms she elects to proceed. mother present for conversation. (3) UTI (urinary tract infection): Code(s): N39.0 - Urinary tract infection, site not specified Status: Acute Urology Consult Note HPI Date Seen: 06/05/22 Primary Care Provider: Sander Tirado MD Consult Narrative Narrative: yN Shetty is a 51 year old female with a 1 day hx of left renal colic pain, nausea vomiting. She denies GH or dysuria. Denies recurrent UTI. No prior hx of stones. In ED she had CT which showed 3 mm left distal stone. UA + nitrites, 75wbc. Low grade fever at home. Pain was rated 10/10, improved somewhat now with dilaudid. Last ate at 9 am, salad. Review of Systems Constitutional: Constitutional: Reports no additional constitutional complaints and Reports body ache(s) Eyes: Eyes: Reports no additional eye complaints ENT: Reports system reviewed and no additional complaints, except as documented Cardiovascular: Cardiovascular: Reports no additional cardiovascular complaints and Denies chest pain Respiratory: Respiratory: Reports no additional respiratory complaints and Denies dyspnea Gastrointestinal: Gastrointestinal: Reports as per HPI Genitourinary: Genitourinary: Reports as per HPI Musculoskeletal: Musculoskeletal: Reports no additional musculoskeletal complaints Integumentary/Breasts: Skin/Breast: Reports system reviewed and no additional complaints, except as docu Neurologic: Reports system reviewed and no additional complaints, except as documented Psychiatric: Psychiatric: Reports no additional psychiatric complaints PMFSH Past Medical History Medical History Anxiety Cabezas's esophagus with esophagitis (~1994) Bursitis of right shoulder (~2009) Class 3 severe obesity with serious comorbidity and body mass index (BMI) of 40.0 to 44.9 in adult (~2009) Depression Hyperlipidemia, unspecified (~2005) Hypothyroidism (acquired) (~2005) Morbid obesity Obesity OCD (obsessive compulsive disorder) (~2005) Palpitations Skin neoplasm Type 2 diabetes mellitus Vitamin B12 deficiency anemia due to intrinsic factor deficiency (~2015) Vitamin D deficiency, unspecified (~2015) Surgical History Surgical History S/P bilateral breast reduction S/P cholecystectomy (~2002) S/P tonsillectomy (~1997) S/P wrist surgery Status post cervical polyp removal Status post hysteroscopic polypectomy 2014, 2018 Family History Family History Mother Family history of osteoporosis Patient's mother is in good health Father Family history of lung cancer, Ons
--- NOTE | 2022-06-05 15:48 | WPDHPUPDATE1 ---
History and Physical Update Update Date/Time: 06/05/22 15:48 History and Physical has been reviewed, including an updated exam of the patient. There are NO changes in the patient's condition. Risks, benefits, and alternatives have been discussed and questions answered. Patient agrees to proceed with procedure.
--- NOTE | 2022-06-05 16:10 | P.PNAN_ITS ---
Anes - Eval Final PreProcedure Day of Procedure 06/05/22 16:10 Patient weight: obese Heart: regular rate and rhythm Lungs: clear to auscultation Airway: Mallampati scale class II Neurological: alert and oriented Last oral intake: >/= 8 hours ASA classification: III Emergent: yes Anesthetic plan: proceed Anesthesia type and monitoring: general LMA and standard monitoring Results Review: All pre-operative results and documents have been reviewed as part of the pre- operative evaluation. Informed Consent: The patient's anesthetic plan and its attendant risks and benefits were discussed with the patient/family/POA. Questions were solicited and answers provided to the satisfaction of the patient/family/POA.
[2022-06-05] MEDS: LACTATED RINGERS 1,000 ML 30 ML IV CONT ×2 (16:20→17:21)
[2022-06-05] MEDS: ONDANSETRON INJ 4 MG/2 ML VIAL (16:35)
[2022-06-05] MEDS: LIDOCAINE HCL 2% GEL UROJET 10 ML PKG MUCOUS MEM (16:48)
--- NOTE | 2022-06-05 16:53 | P.OP_ITS ---
Procedure Note - Detailed Date of Procedure 06/05/22 Pre-op Diagnosis left ureter stone UTI Post-op Diagnosis Same Procedure Performed cystoscopy, left retrograde pyelogram, left ureter stent placement Surgeon Edwin Darnell MD Anesthesia General Indications UTI, left ureter stone with hydro Description of Procedure Patient was brought back to the operating room, she received a general anesthetic. She was prepped and draped in standard fashion in the dorsal l ithotomy position with Betadine to the genitalia, care was taken to not hyperflex or hyperextend any extremity, all bony prominences were padded. She received IV rocephin in the ER. After appropriate time-out and radiological films were displayed in the room, a 20 Fr cystoscope was inserted into the urethra, it was grossly normal. Endoscopy of the bladder reveal single orthotopic ureteral orifices effluxing clear yellow urine. Bladder was free of lesion, tumor mass or stone. Organica [employer] wire was inserted into the left ureter, stone seen on stopperer assembler KUB. Under fluoroscopy I was able to navigate the wire into the kidney, 5 Fr angio cath placed over wire past stone and RPG was performed to outline collecting system. there was mild hydronephrosis and hydroureter to the level of the stone. Wire was replaced a a 4.8 Fr variable length stent was deployed. Good curl was seen fluoroscopically in the kidney and both fluoroscopically and endoscopically in the bladder. 10 cc of uro-jet was used for local anesthesia, All instruments and wires removed, patient awoken and transferred to PACU in stable condition. Mother informed of findings and followup plan. Pt to be admitted for pain control and IV antibiotics to the hospitalist service Implants left 4.8Fr variable length double J stent Complications No immediate complications Condition Stable Disposition PACU
[2022-06-05 17:58] LABS: Glucose Point of Care 248 mg/dl (65-105)
--- NOTE | 2022-06-05 18:23 | ADMGEN ---
This patient, Ny Shetty, was admitted to [facility] Surg Room 300-01 at 1810. Report from [facility] [place] in PACU. Patient/family oriented to hospital policies and general routines including ID bracelet, bed and alarms, visiting hours, pain management, procedures, bathroom and other care routines, personal items, smoking policy, room service/diet, and visiting hours. Information on how to activate the Rapid Response Team has been discussed. Patient/Family are encouraged to report perceived risks to care and to ask questions if they do not understand what they are told or what they should do.
--- NOTE | 2022-06-05 19:30 | PM.IMHP ---
H&P: HPI History of Present Illness Date/Time: 06/05/22 19:30 Chief Complaint: Nausea, vomiting, abdominal pain. Narrative: This is a 51-year-old female with history of GERD, Cabezas esophagus, hypothyroidism, hyperlipidemia, and type 2 diabetes mellitus who presented to the emergency department for evaluation of nausea, vomiting, and abdominal pain. When she got up this morning she had some cramping pain in the left flank which she initially attributed to the fact that she is currently on her menstrual cycle. As the morning progressed she developed a severe and constant sharp shooting pain in the left flank, radiating into the groin. She has had ongoing nausea and reports innumerable bouts of vomiting since the onset of the pain. CT of the abdomen and pelvis showed a partially obstructing stone at the left UVJ with mild left hydroureteronephrosis and her urine was positive for nitrates and greater than 75 WBC. She was taken to the OR and underwent cystoscopy with left retrograde pyelogram and left ureteral stent placement per Dr. Darnell. She is being admitted in this setting for IV antibiotics and supportive care. At the time my evaluation she feels a lot better and has minimal discomfort. She has no prior history of kidney stones but has a strong family history of such. She denies hematuria dysuria but reports urinary frequency and incontinence. No fever, chills, or sweats. No current nausea or vomiting. Review of Systems Review of Systems: Twelve systems were reviewed and are negative except for as per HPI. [facility] Past Medical History Medical History (Updated 06/05/22 @ 22:35 by Iveth Bolaños PA-C) Anxiety Cabezas's esophagus with esophagitis (1994) EGD x2 with no evidence of Cabezas's as of May 2022. Depression Hyperlipidemia, unspecified (2005) Hypothyroidism (acquired) (2005) Obesity Obsessive compulsive disorder Palpitations Skin neoplasm Type 2 diabetes mellitus Vitamin B12 deficiency anemia due to intrinsic factor deficiency (2015) Vitamin D deficiency, unspecified (2015) Surgical History Surgical History History of cystoscopy History of ureter stent S/P bilateral breast reduction S/P cholecystectomy (~2002) S/P tonsillectomy (~1997) S/P wrist surgery Status post cervical polyp removal Status post hysteroscopic polypectomy 2018 Family History Family History Mother Family history of osteoporosis Patient's mother is in good health Father Family history of lung cancer, Onset Age: 64 Acute myocardial infarction, Onset Age: 64 Grandparent Family history of lung cancer, Onset Age: 94 Family history of malignant neoplasm of breast, Onset Age: 63 Other Diabetes mellitus Family history of malignant neoplasm Social History Social History (Updated 06/05/22 @ 22:33 by Iveth Bolaños PA-C) Social History: Surrogate medical decision maker: Marilia Winston, mother. Code status: Full code. Smoking status: Never smoker Second hand tobacco smoke exposure: No Alcohol intake: never Substance use: never Substance use type: does not use Lack of Transportation: No Lack of Food: Never True Current Housing: I Have Housing Concerned About Future Housing: No Difficulty Paying Gas/Electric Bills: No Difficulty Paying for Meds: No Currently Unemployed: No Education: Bachelor's Degree Difficulty w/ Childcare or Family Care: No Additional living arrangements comments: Lives alone in [place]. Not , no children. 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
[2022-06-05 20:18] LABS: Glucose Point of Care 238 mg/dl (65-105)
[2022-06-05 20:28] LABS: Hemoglobin A1C 7.9 % (<5.7)
[2022-06-05] MEDS: SODIUM CHLORIDE 0.9% IV 1,000 ML 100 ML IV CONT (21:39)
[2022-06-05] MEDS: BENZOCAINE/MENTHOL (*BKC) 18 EA LOZENGE 1 LOZENGE PO (23:05)
[2022-06-06 06:00] VITALS: BP 119/64; PULSE 83; RESP 18; TEMP 36.5; O2SAT 93
--- NOTE | 2022-06-06 07:21 | WPDUROPN2 ---
Progress Note: A&P Assessment and Plan (1) Left ureteral stone: Code(s): N20.1 - Calculus of ureter Status: Acute (2) Urinary tract infection: Code(s): N39.0 - Urinary tract infection, site not specified Status: Acute Plan Pt. comfortable and afebrile. I'm comfortable with discharge on oral abx. (ie. Omnicef x7 days) prior to completion of urine culture. F/U: 7-10 days to see if stone has passed and stent removal. Subjective Subjective Date/Time Seen: 06/06/22 07:21 Feeling much better following stent placement Review of Systems Cardiovascular: Cardiovascular: Denies chest pain, Denies lightheadedness, Denies palpitations and Denies dyspnea Respiratory: Respiratory: Denies dyspnea Gastrointestinal: Gastrointestinal: Denies diarrhea, Denies nausea and Denies vomiting Genitourinary: Genitourinary: Denies hematuria and Denies dysuria Endocrine: Endocrine: Denies palpitations Exam Const: General: no acute distress Resp: Effort & Inspection: normal respiratory effort GI: Inspection: non-distended GI Palp: No abdominal tenderness and No Guarding due to palpation present (GI) Auscultation: normal bowel sounds Objective Data Vital Signs Vital Signs: Vital Signs - 24 hr 06/05/22 12:08 06/05/22 12:56 06/05/22 13:45 Temperature 97.5 F L Pulse Rate 87 Respiratory Rate 18 Blood Pressure 188/83 H Pulse Oximetry 100 100 100 Oxygen Delivery Oxygen Flow Rate 06/05/22 13:47 06/05/22 14:00 06/05/22 16:20 Temperature Pulse Rate 88 78 Respiratory Rate 19 14 Blood Pressure 185/87 H 182/85 H Pulse Oximetry 100 99 99 Oxygen Delivery Oxygen Flow Rate 06/05/22 16:56 06/05/22 17:11 06/05/22 17:25 Temperature 96.9 F L Pulse Rate 90 95 99 Respiratory Rate 18 13 16 Blood Pressure 126/60 104/82 145/77 H Pulse Oximetry 95 100 96 Oxygen Delivery Simple Face Mask Simple Face Mask Room Air Oxygen Flow Rate 6 6 06/05/22 17:40 06/05/22 17:55 06/05/22 18:16 Temperature 97.5 F L Pulse Rate 66 70 73 Respiratory Rate 14 16 14 Blood Pressure 140/71 147/96 H 134/71 Pulse Oximetry 97 96 92 Oxygen Delivery Room Air Room Air Oxygen Flow Rate 06/05/22 20:00 06/05/22 22:00 Temperature 97.4 F L Pulse Rate 98 Respiratory Rate 18 Blood Pressure 146/82 H Pulse Oximetry 100 Oxygen Delivery Room Air Oxygen Flow Rate Intake/Output Intake/Output: Intake & Output 06/03/22 06/04/22 06/05/22 06/06/22 23:59 23:59 23:59 23:59 Intake Total 1750 Output Total 500 Balance 1250 Meds/Results Medications: Active Medications Generic Name Dose Route Start Last Admin Trade Name Freq PRN Reason Stop Dose Admin Benzocaine 1 lozenge 06/05/22 22:39 06/05/22 23:05 Benzocaine/Menthol (*Bkc) 18 Ea Lozenge PO 1 lozenge PRN PRN Administration Sore Throat Cyanocobalamin 500 mcg 06/06/22 09:00 Cyanocobalamin 500 Mcg Tablet PO QAM [facility] Dextrose 12.5 gm 06/05/22 19:47 Dextrose 50% 25 Gm/50 Ml Syringe IV PUSH PRN PRN Hypoglycemia Protocol Fish Oil 1 gm 06/06/22 09:00 [place] 3 Polyunsat Fatty Acids 1 Gm Cap PO DAILY [facility] Folic Acid 0.4 mg 06/06/22 09:00 Folic Acid 0.4 Mg Tablet PO QAM [facility] Glimepiride 4 mg 06/06/22 08:00 Glimepiride 2 Mg Tablet PO BIDWM [facility] Glucagon 1 mg 06/05/22 19:47 Glucagon For Inj 1 Mg Vial IM PRN PRN Hypoglycemia Protocol Glucose 15 gm 06/05/22 19:47 Glucose Oral Gel 15 Gm Of Glucse In 37.5 Gm Tube PO PRN PRN Hypoglycemia Protocol Dextrose 1,000 mls @ 100 mls/hr 06/05/22 19:47 Dextrose 5% 1,000 Ml IVPB PRN PRN Hypoglycemia Protocol Ceftriaxone Sodium/Dextrose 1 gm in 50 mls @ 100 mls/hr 06/06/22 14:00 Rocephin 1 Gm/D5w 50 Ml IVPB Q24H [facility] Insulin Aspart 2 - 5 units 06/06/22 08:00 Insulin Aspart (*Bkc) 100 Units/Ml SUB-Q TIDWM [facility] Protoc
[2022-06-06 07:27] LABS: Hematocrit 36.5 % (37.0-47.0); Mean Corpuscular HGB Conc 32.9 g/dl (32-36); Mean Corpuscular Volume 88.2 fl (80-100); Mean Platelet Volume 12.1 fl (7.4-10.4); Platelet Count Result 236 k/mm3 (150-375); Red Blood Count 4.14 M/mm3 (4.2-5.4); Red Cell Distribution Width 13.6 % (11.5-14.5); White Blood Count 14.5 K/mm3 (4.5-10.0)
[2022-06-06 07:38] LABS: Anion Gap 8 mmol/L (8-16); Blood Urea Nitrogen 12 mg/dL (7-17); Calcium 8.4 mg/dL (8.4-10.2); Carbon Dioxide 27 mmol/L (22-30); Chloride 104 mmol/L (98-107); Estimated CRCL calculation 95 ml/min; Estimated Glomerular Filt Rate > 60; Glucose 247 mg/dL (65-110); Potassium 3.7 mmol/L (3.4-5.0); Sodium 139 mmol/L (137-145)
[2022-06-06 07:40] LABS: Glucose Point of Care 196 mg/dl (65-105)
[2022-06-06 08:19] LABS: Thyroid Stimulating Hormone Reflex 0.865 uIU/mL (0.465-4.68)
[2022-06-06] MEDS: CHOLECALCIFEROL 1,000 UNITS TABLET 2000 UNITS PO (08:33)
[2022-06-06] MEDS: GLIMEPIRIDE 2 MG TABLET 4 MG PO (08:34)
[2022-06-06] MEDS: CYANOCOBALAMIN 500 MCG TABLET PO (08:34)
[2022-06-06] MEDS: PANTOPRAZOLE 40 MG TABLET PO (08:34)
[2022-06-06] MEDS: OMEGA 3 POLYUNSAT FATTY ACIDS 1 GM CAP PO (08:35)
--- NOTE | 2022-06-06 10:20 | PM.DS ---
DS: Admitting Diagnosis Discharge Date June 06, 2022 Admitting Diagnosis Ureteral stone DS: Discharge Diagnosis Discharge Diagnosis (1) Ureteral stone with hydronephrosis: Code(s): N13.2 - Hydronephrosis with renal and ureteral calculous obstruction Status: Acute Assessment and Plan: Status post cystoscopy with left ureteral stent placement. (2) Urinary tract infection: Code(s): N39.0 - Urinary tract infection, site not specified Status: Acute Assessment and Plan: Continue ceftriaxone, pending urine culture. (3) Type 2 diabetes mellitus: Code(s): E11.9 - Type 2 diabetes mellitus without complications Status: Acute Assessment and Plan: Resume glimepiride once tolerating p.o.. Initiate sliding scale insulin, Accu-Cheks, and hypoglycemic protocol. Check A1c. (4) Abnormal liver diagnostic imaging: Code(s): R93.2 - Abnormal findings on diagnostic imaging of liver and biliary tract Status: Acute Assessment and Plan: 3 to 3.5 centimeter ill-defined region of decreased attenuation along the genesis hepatis most likely focal hepatic steatosis though radiology recommends further evaluation with pre and post-contrast MRI. Can be done as an outpatient (5) Hypothyroidism (acquired): Onset Date: 2005 Code(s): E03.9 - Hypothyroidism, unspecified Status: Chronic Assessment and Plan: Continue levothyroxine and check TSH. DS: Summary Hospital Course Hospital Course: Admitted for stone with stent placement. Also found have UTI. Omnicef for 7 days on discharge. Follow-up with Urology Time Spent with Patient Time attestation: Total time spent providing and/or coordinating discharge services: Exam Narrative: General: Mildly ill-appearing female in the semi-Beard position in bed. Weight: 104 kilograms. BMI: 39.4. HEENT: Wearing glasses. PERRL, EOMI. Sclera anicteric. Tacky mucous membranes. Neck: Supple. Respiratory: Lungs are clear to auscultation bilaterally. Cardiovascular: Regular rate and rhythm with S1-S2. No murmur, rub, or gallop. Gastrointestinal: Abdomen is soft and nondistended with positive bowel sounds. She has mild tenderness to palpation in the left mid to low back and flank. No guarding or rebound tenderness. No CVA tenderness. Skin: Warm and dry. No rash or lesions on limited exam. Extremities: No cyanosis, clubbing, or edema. Radial and pedal pulses intact. Neurological: Alert. Cranial nerves 2-12 are grossly intact. No gross focal deficits to casual conversation. Psychiatric: Pleasant and cooperative with normal mood and affect. Judgment and insight intact. DS: Data Data Completed and Pending Labs on day of discharge: Labs from last 24 hours 06/06/22 06/06/22 06/06/22 07:31 06:23 06:23 WBC RBC Hgb Hct MCV MCH MCHC RDW Plt Count MPV Immature Gran % (Auto) Neut % (Auto) Lymph % (Auto) [place] % (Auto) Eos % (Auto) Baso % (Auto) Lymph # (Auto) [place] # (Auto) Eos # (Auto) Baso # (Auto) Abs Immat Gran (auto) Absolute Neuts (auto) Absolute Nucleated RBC Nucleated RBC % Sodium 139 Potassium 3.7 Chloride 104 Carbon Dioxide 27 Anion Gap 8 BUN 12 Creatinine 0.70 Estim Creat Clear Calc 95 Estimated GFR > 60 Glucose 247 H POC Capillary Glucose 196 H Hemoglobin A1c Calcium 8.4 Magnesium 2.0 Total Bilirubin AST ALT Alkaline Phosphatase Total Protein Albumin TSH (Reflex) 0.865 Urine Color Urine Appearance Urine pH Ur Specific [place] Urine Protein Urine Glucose (UA) Urine Ketones Ur Blood (Man) Urine Nitrate Urine Bilirubin Urine Urobilinogen Leukocyte Esterase Rfl Urine RBC Urine WBC Hyaline Casts Urine Mucus Influenza A (RT-PCR) Influenza B (RT-PCR) SARS-CoV-2 RNA (RT-PCR)
== END 2022-06-06 10:55 | disposition home or self-care (01) ==
LOC: ANHED 16:20 → ANHSURGERY 16:57 → ANH3MEDSUR 06-06 05:30
PROVIDERS: Physician Assistant; Urology; Admitting Provider Family Medicine; Emergency Provider Physician Assistant; PCP Family Medicine; Visit Provider Chiropractor
PROC: (CPT 52352; principal; 2022-06-05 16:30)
DX: N13.2 Hydronephrosis with renal and ureteral calculous obstruction (principal); N39.0 Urinary tract infection, site not specified; B96.1 Klebsiella pneumoniae [K. pneumoniae] as the cause of diseases classified elsewhere; B96.89 Other specified bacterial agents as the cause of diseases classified elsewhere; K44.9 Diaphragmatic hernia without obstruction or gangrene; F41.9 Anxiety disorder, unspecified; E66.01 Morbid (severe) obesity due to excess calories; Z68.39 Body mass index [BMI] 39.0-39.9, adult; E78.5 Hyperlipidemia, unspecified; E03.9 Hypothyroidism, unspecified; Z20.822 Contact with and (suspected) exposure to COVID-19; F42.9 Obsessive-compulsive disorder, unspecified; R00.2 Palpitations; E11.9 Type 2 diabetes mellitus without complications; D51.0 Vitamin B12 deficiency anemia due to intrinsic factor deficiency; E55.9 Vitamin D deficiency, unspecified; Z79.84 Long term (current) use of oral hypoglycemic drugs; Z79.899 Other long term (current) drug therapy; Z82.49 Family history of ischemic heart disease and other diseases of the circulatory system; Z83.3 Family history of diabetes mellitus
CPT/HCPCS: 52005; 36415; 74176; 74420; 80048; 80053; 81001; 81025; 82948; 83036; 83735; 84443; 85025; 85027; 87077; 87086; 87186; 87636; 96361; 96365; 96375; 99285; A9270; C1758; C1769; C2617; G0378; J0131; J0696; J1100; J1170; J1200; J1885; J2405; J2704; J3010; J7030; J7120

== ENCOUNTER 2022-06-11 06:21 | Emergency (ER) | payer BC, SELFPAY ==
--- NOTE | ~2022-06-11 | CT_ITS ---
EXAMINATION: CT abdomen pelvis wo con DATE: 06/11/2022 08:03 INDICATION: Hematuria. TECHNIQUE: Computed tomography (CT) of the abdomen and pelvis was performed without intravenous contr ast. Automated exposure control and iterative reconstruction technique were employed. The dose-length product was 527.72 mGy-cm. COMPARISON: CT abdomen and pelvis 06/05/2022 FINDINGS: The visualized portions of the lung bases are clear without pneumonia or pleural effusion. The heart size is normal. No pericardial effusion. There is diffuse hepatic steatosis. There are trujillo ges of cholecystectomy. The spleen, pancreas, adrenal glands, and right kidney are normal. There is a left internal ureteral stent in expected position. There is a 12 mm cyst in left kidney. There is a 1 mm stone in left kidney. There is a 3 mm stone in distal left ureter. There are no dilated loops of bowel. The appendix is normal. There are no pathologically enlarged lymph nodes. There is no free in traperitoneal fluid. There is mild thoracolumbar spondylosis. There is a benign bone island in L4 [place] tebral body. IMPRESSION: 1. 3 mm stone in distal left ureter with left internal ureteral stent in expected position. 2. 1 mm nonobstructing left kidney stone. Reviewed, dictated and finalized at location A. NTION DEPUTY IMPRESSION: 1. 3 mm stone in distal left ureter with left internal ureteral stent in expect ed position. 2. 1 mm nonobstructing left kidney stone.
[2022-06-11 06:27] VITALS: BP 148/107; PULSE 98; RESP 17; TEMP 36.6; O2SAT 99
[2022-06-11 07:24] LABS: Basophils Absolute Auto 0.1 K/mm3 (0.0-0.1); Basophils Percent Auto 0.7 % (0.2-1.2); Eosinophils Absolute Auto 0.2 K/mm3 (0-0.3); Eosinophils Percent Auto 2.2 % (0-4.4); Hematocrit 41.2 % (37.0-47.0); Hemoglobin 13.3 g/dL (12.0-15.0); Immature Granulocyte Absolute 0.06 K/mm3 (0.00-0.031); Immature Granulocyte Percent A 0.7 % (0-0.5); Lymphocytes Absolute Auto 2.59 K/mm3 (0.9-3.2); Mean Corpuscular HGB Conc 32.3 g/dl (32-36); Mean Corpuscular Hemoglobin 28.3 pg (26-34); Mean Corpuscular Volume 87.7 fl (80-100); Mean Platelet Volume 10.6 fl (7.4-10.4); Monocytes Absolute Auto 0.5 K/mm3 (0.1-0.6); Monocytes Percent Auto 5.6 % (2.6-8.5); Neutrophils Absolute Auto 5.5 K/mm3 (1.3-6.7); Neutrophils Percent Auto 61.8 % (45.5-73.1); Platelet Count Result 254 k/mm3 (150-375); Red Cell Distribution Width 13.6 % (11.5-14.5); White Blood Count 8.9 K/mm3 (4.5-10.0)
[2022-06-11 07:25] LABS: Add Urine Microscopic? YES; Appearance Urine Turbid (Clear); Bilirubin Urine 3+ (Negative); Blood Urine 3+ (Negative); Color Urine Brown (Yellow); Glucose Urine UA Negative (Negative); Ketones Urine 1+ mg/dL (Negative); Leukocyte Esterase Ur 2+ LEU/UL (Negative); Nitrate Urine Positive (Negative); Protein Urine 3+ mg/dL (Negative); Specific Grav Ur 1.025 (1.001-1.035); pH Urine 6.5 (5.0-9.0)
--- NOTE | 2022-06-11 07:40 | ED.GENADULT ---
HPI - General Adult General Chief complaint: Urogenital-Female Stated complaint: Hematuria after stent placement Time Seen by Provider: 06/11/22 07:09 History of Present Illness HPI narrative: this is a 51-year-old female presenting to ED with a chief complaint of hematuria. The patient had a emergency ureteral stent placed on June 05 for an infected kidney stone. She was doing well for 4 days and then 2 days ago she started have [place] blood on urination. Says that she is unable see the bottom of the toilet through her red urine. She is not known if she is passing any clots. She does have some mild left flank and bladder pain. She has taken some Tylenol with adequate pain control. The procedures performed by Dr. Wilde, and she is following with Dr. Matthews. Patient denies fever, chills, abdominal pain, pain on urination, nausea vomiting diarrhea. Related Data Home Medications Medication Instructions Recorded Confirmed cholecalciferol (vitamin D3) 50 2,000 unit PO DAILY 05/05/19 06/05/22 mcg (2,000 unit) tablet multivitamin 1 tablet PO DAILY 05/05/19 06/05/22 omega-3 fatty acids 1,000 mg 1,000 mg PO DAILY 05/05/19 06/05/22 capsule vitamin B12 500 mcg-folic acid 400 1 tablet PO DAILY 05/05/19 06/05/22 mcg tablet CoQ-10 100 mg PO WEEKLY 03/29/20 06/05/22 semaglutide 0.25 mg or 0.5 mg (2 0.75 mg subcut WEEKLY 10/25/20 06/05/22 mg/1.5 mL) subcutaneous pen injector omeprazole 20 mg capsule,delayed 20 mg PO DAILY 12/06/21 06/05/22 release Iron (ferrous sulfate) See Rx Instructions .Route .COMPLEX 03/16/22 06/05/22 Lacto no.51-B.animalis 30 billion 1 cap PO DAILY 03/16/22 06/05/22 cell-inulin 50 mg capsule,delay rel (Fortify Women Probiotic) ascorbate sodium (vitamin C) 30 mg PO 2XW 03/16/22 06/05/22 ketorolac 10 mg tablet 10 mg PO DAILY PRN Pain 03/16/22 06/05/22 levothyroxine 150 mcg tablet 150 mcg PO DAILY 03/16/22 06/05/22 (Synthroid) selenium 100 mcg capsule 100 mcg PO WEEKLY 03/16/22 06/05/22 glimepiride 2 mg tablet 4 mg PO BID 05/09/22 06/05/22 Allergies Allergy/AdvReac Type Severity Reaction Status Date / Time codeine Allergy Intermediate breathing Verified 05/09/22 13:30 difficulty meperidine AdvReac Severe Vomiting Verified 05/09/22 13:30 PMFSH Past Medical History Medical History Anxiety Cabezas's esophagus with esophagitis (1994) EGD x2 with no evidence of Cabezas's as of May 2022. Depression Hyperlipidemia, unspecified (2005) Hypothyroidism (acquired) (2005) Obesity Obsessive compulsive disorder Palpitations Skin neoplasm Type 2 diabetes mellitus Vitamin B12 deficiency anemia due to intrinsic factor deficiency (2015) Vitamin D deficiency, unspecified (2015) Surgical History Surgical History History of cystoscopy History of ureter stent S/P bilateral breast reduction S/P cholecystectomy (~2002) S/P tonsillectomy (~1997) S/P wrist surgery Status post cervical polyp removal Status post hysteroscopic polypectomy 2014, 2018 Family History Family History Mother Family history of osteoporosis Patient's mother is in good health Father Family history of lung cancer, Onset Age: 64 Acute myocardial infarction, Onset Age: 64 Grandparent Family history of lung cancer, Onset Age: 94 Family history of malignant neoplasm of breast, Onset Age: 63 Other Diabetes mellitus Family history of malignant neoplasm Social History Social History Social History: Surrogate medical decision maker: Marilia Winston, mother. Code status: Full code. Smoking status: Never smoker Second hand tobacco smoke exposure: No Alcohol intake: never Substance use: never Substance use type: does not use Lack of Transportation: No Lack
[2022-06-11 07:44] LABS: Alanine Aminotransferase 24 U/L (6-35); Albumin Level 4.6 g/dL (3.5-5.1); Alkaline Phosphatase 102 U/L (38-126); Anion Gap 10 mmol/L (8-16); Aspartate Amino Transferase 24 U/L (14-36); Bilirubin,Total 0.4 mg/dL (0.2-1.3); Blood Urea Nitrogen 15 mg/dL (7-17); Calcium 8.6 mg/dL (8.4-10.2); Carbon Dioxide 24 mmol/L (22-30); Chloride 105 mmol/L (98-107); Estimated Glomerular Filt Rate > 60; Glucose 183 mg/dL (65-110); Sodium 139 mmol/L (137-145)
[2022-06-11 08:05] LABS: Budding Yeast Urine Present /hpf; Mucus Urine Few /lpf; RBC Urine >75 /hpf (0-2); WBC Urine >75 /hpf
[2022-06-11 08:17] LABS: Prothrombin Time 12.9 Seconds (11.1-14.7)
[2022-06-11 08:18] LABS: Partial Thromboplastin Time 30.1 SECONDS (22.3-36.8)
[2022-06-11] MEDS: SULFAMETHOXAZOLE/TRIMETHOPRIM 800/160 MG DS TABLET 1 TAB PO (10:59)
[2022-06-11 11:27] VITALS: BP 122/84; PULSE 80; RESP 16; O2SAT 98
== END 2022-06-11 11:27 | disposition home or self-care (01) ==
PROVIDERS: Emergency Medicine; Emergency Provider Emergency Medicine; PCP Family Medicine
DX: T83.593A Infection and inflammatory reaction due to other urinary stents, initial encounter (principal); N39.0 Urinary tract infection, site not specified; N20.2 Calculus of kidney with calculus of ureter; E78.5 Hyperlipidemia, unspecified; E03.9 Hypothyroidism, unspecified; E66.9 Obesity, unspecified; E11.9 Type 2 diabetes mellitus without complications; D51.0 Vitamin B12 deficiency anemia due to intrinsic factor deficiency; E55.9 Vitamin D deficiency, unspecified; Z79.84 Long term (current) use of oral hypoglycemic drugs
CPT/HCPCS: 36415; 74176; 80053; 81001; 85025; 85610; 85730; 87086; 87147; 87181; 87186; 96365; 99284; A9270; J0696

== ENCOUNTER 2022-06-13 08:56 | Outpatient (CLI) | payer BC, SELFPAY ==
--- NOTE | ~2022-06-13 | XR_ITS ---
Supine and upright views of the abdomen Clinical history: Hematuria, left renal stone Findings: Bowel gas pattern is nonspecific. No evidence for obstruction or free air. Left ureteral st ent present. No definite stone along the course of the stent. Cholecystectomy clips noted. Osseous st ructures are intact. Impression: Left ureteral stent. No definite stone along the course of the stent. Reviewed, dictated and finalized at location . INTERNSHIP Impression: Left ureteral stent. No definite stone along the course of the stent.
== END 2022-06-13 08:57 | disposition home or self-care (01) ==
PROVIDERS: PCP Family Medicine; Visit Provider Urology
DX: R31.0 Gross hematuria (principal)
CPT/HCPCS: 74018

== ENCOUNTER 2022-06-15 03:20 | Day surgery (SDC) | payer BC, SELFPAY ==
[2022-06-13 14:47] VITALS: BMI 39.4
--- NOTE | 2022-06-13 14:53 | PC.NURSE ---
Report to the Outpatient Waiting Room, entrance under the green pavilion located off [facility], at time 1230 on date 06/15/22. Planned Procedure Time: 1430. Time changes happen often and if your time is changed the preop area will call you the afternoon before. - You and your visitor will be asked to self-screen and do not enter if you have any COVID symptoms. - Only one visitor is requested with a max of two and NO children visitors are allowed at this time. - The patient visitor may be requested to leave or wait in car when not with patient due to distancing restrictions. - A mask is REQUIRED within the hospital. Patients may have clear liquids (water, carbonated beverages, clear teas, apple juice) until 3 hours prior to surgery with a maximum of 20 ounces. - No food from midnight until time of surgery Take the following medications with a SIP of water the morning of surgery: TYLENOL IF NEEDED, SYNTHROID, ANTIBIOTIC Medications to discontinue per physician: VITAMINS/SUPPLEMENTS Date to take last dose: NO MORE UNTIL AFTER SURGERY Please no make-up, nail guinean, hairspray, perfume, deodorant, or body powder the day of surgery. No jewelry (including any body piercings) or valuables the day of surgery, leave them at home. Please take a shower or bath the night before, or the morning of, surgery with an antibacterial soap. Wear comfortable, loose fitting clothing. - Jewelry must be removed prior to entering the operating room. Rings and piercings that are not removed may be cut off. - The hospital will not accept responsibility for valuables. - Please leave all valuables, including medications, at home the day of surgery. If you are going home after surgery, a licensed courtesy bus driver must drive you home. - NO public transportation without another adult if you receive anesthesia. - We recommend that an adult stay with you for 24 hours following discharge. - We also recommend that you do not drive, make important decision, drink alcoholic beverages, or take any drugs that were not prescribed by your health care provider for at least 24 hours after your discharge time. Follow any additional instructions given to you from your surgeon. If you or anyone in your household have experienced Covid symptoms in the past week, please notify your surgeon or the nurse liaison at the phone number below for possible testing. Telephone instructions given to SATURNINO WHITE and asked if any additional questions and then verbalized understanding. Patient advised to call surgeon office or pre surgery nurse liaison [phone] if any additional questions.
[2022-06-15] VITALS (8 sets, daily range): BP systolic 135–163; BP diastolic 61–98; PULSE 72–92; RESP 14–20; TEMP 36.4–37.4; O2SAT 99–100
--- NOTE | ~2022-06-15 | XR_ITS ---
XR fluoroscopy no charge 06/15/2022 14:26 Left internal ureteral stent removal and stone extraction TECHNIQUE: Fluoroscopy used during Left internal ureteral stent removal and stone extraction perform ed by [Kyler Matthews MD] on 06/15/2022. 8 seconds of fluoroscopy time with 3 images captured . ] FINDINGS: Correlate with procedure note. IMPRESSION: Fluoroscopy used during left internal ureteral stent removal with stone extraction. Reviewed, dictated and finalized at location A. VAULT ATTENDANT IMPRESSION: Fluoroscopy used during left internal ureteral stent removal with s tone extraction.
--- NOTE | 2022-06-15 06:31 | WPDHPUPDATE1 ---
History and Physical Update Update Date/Time: 06/15/22 06:31 History and Physical has been reviewed, including an updated exam of the patient. There are NO changes in the patient's condition. Risks, benefits, and alternatives have been discussed and questions answered. Patient agrees to proceed with procedure.
--- NOTE | 2022-06-15 08:06 | ECG_ITS ---
Measurements Intervals [place] Rate: 72 P: -7 AK: 167 QRS: 25 QRSD: 86 T: 17 QT: 399 QTc: 438 Interpretive Statements SINUS RHYTHM BASELINE ARTIFACT- V4 NORMAL ECG COMPARED TO ECG 04/06/2020 09:02:49 NO SIGNIFICANT CHANGES Electronically Signed On 06-15-2022 13:21:39 [employer] D[employer] REPAIRER by Timur Nunez D.O.
--- NOTE | 2022-06-15 12:35 | WPDANESEPPF ---
Anes - Initial Pre Proc Eval Procedure: Operation Date: 06/15/22 14:30 Proposed Procedures p Cystoscopy, Left Stent Removal, Left Ureteroscopy with Stone Extraction, Left Stent Replacement, Holmium Laser Lithotripsy - Kyler Matthews MD Date/Time: 06/15/22 12:35 Surgeon: Kyler Matthews MD Pre Op Diagnosis: gross hematuria, left ureteral stone Patient Data Age: 51 Gender: F Height: 1.63 m Weight: 104.4 kg Allergies Allergy/AdvReac Type Severity Reaction Status Date / Time codeine Allergy Intermediate breathing Verified 06/15/22 12:50 difficulty meperidine AdvReac Severe Vomiting Verified 06/15/22 12:50 Home Medications Medication Instructions Recorded Confirmed Type cholecalciferol (vitamin D3) 50 2,000 unit PO DAILY 05/05/19 06/15/22 History mcg (2,000 unit) tablet multivitamin 1 tablet PO DAILY 05/05/19 06/15/22 History omega-3 fatty acids 1,000 mg 1,000 mg PO DAILY 05/05/19 06/15/22 History capsule vitamin B12 500 mcg-folic acid 400 1 tablet PO DAILY 05/05/19 06/15/22 History mcg tablet CoQ-10 100 mg PO WEEKLY 03/29/20 06/15/22 History semaglutide 0.25 mg or 0.5 mg (2 0.75 mg subcut WEEKLY 10/25/20 06/15/22 History mg/1.5 mL) subcutaneous pen injector omeprazole 20 mg capsule,delayed 20 mg PO DAILY 12/06/21 06/15/22 History release Iron (ferrous sulfate) See Rx Instructions .Route .COMPLEX 03/16/22 06/15/22 History Lacto no.51-B.animalis 30 billion 1 cap PO DAILY 03/16/22 06/15/22 History cell-inulin 50 mg capsule,delay rel (Fortify Women Probiotic) ascorbate sodium (vitamin C) 30 mg PO 2XW 03/16/22 06/15/22 History ketorolac 10 mg tablet 10 mg PO DAILY PRN Pain 03/16/22 06/15/22 History levothyroxine 150 mcg tablet 150 mcg PO DAILY 03/16/22 06/15/22 History (Synthroid) selenium 100 mcg capsule 100 mcg PO WEEKLY 03/16/22 06/15/22 History blood sugar diagnostic (OneTouch #100 ea 04/05/22 06/15/22 Rx Ultra Test strips) diazepam 2 mg tablet (Valium) 0.5 mg PO HS #30 tabs 04/25/22 06/15/22 Rx glimepiride 2 mg tablet 4 mg PO BID 05/09/22 06/15/22 History sulfamethoxazole 800 1 tablet PO Q12H #20 tabs 06/11/22 06/15/22 Rx mg-trimethoprim 160 mg tablet acetaminophen 500 mg tablet 1,000 mg PO QID PRN Pain 06/13/22 06/15/22 History fexofenadine 180 mg tablet 180 mg PO HS 06/13/22 06/15/22 History Patient hx anesthesia problems: none Family hx anesthesia problems: none Results Review: All pre-operative results and documents have been reviewed as part of the pre-operative evaluation. [facility] Past Medical History Medical History (Updated 06/15/22 @ 13:03 by Cal Silveira MD) Anxiety Cabezas's esophagus Cabezas's esophagus with esophagitis (1994) EGD x2 with no evidence of Cabezas's as of May 2022. Class 3 severe obesity with serious comorbidity and body mass index (BMI) of 40.0 to 44.9 in adult (~2009) Depression Gastroesophageal reflux disease with esophagitis (~2015) Hyperlipidemia, unspecified (2005) Hypothyroidism (acquired) (2005) Obesity Obsessive compulsive disorder Palpitations Restless legs syndrome (~2015) Skin neoplasm Type 2 diabetes mellitus Type 2 diabetes mellitus with other circulatory complications (~2005) Vitamin B12 deficiency anemia due to intrinsic factor deficiency (2015) Vitamin D deficiency, unspecified (2016) Surgical History Surgical History History of cystoscopy History of ureter stent S/P bilateral breast reduction S/P cholecystectomy (~2002) S/P tonsillectomy (~1997) S/P wrist surgery Status post cervical polyp removal Status post hysteroscopic polypectomy 2014, 2018 Family History Family History Mother Family history of osteoporosis Patient's mother is in good health Father Family history of lung cancer, Onset Age: 64 Acute myocardial infarction, Onset Age: 64 Grandparent Deceas
[2022-06-15 13:24] LABS: Glucose Point of Care 121 mg/dl (65-105)
[2022-06-15] MEDS: LACTATED RINGERS 1,000 ML 30 ML IV CONT (13:25)
[2022-06-15] MEDS: SCOPOLAMINE 1.5 MG PATCH TRANSDERM (13:34)
--- NOTE | 2022-06-15 13:47 | SUR.PREOP ---
1345 pt requested scopalamine patch be removed, states she is feeling dizzy. Scopalamine removed
[2022-06-15] MEDS: LIDOCAINE HCL 2% GEL UROJET 10 ML PKG MUCOUS MEM (14:19)
--- NOTE | 2022-06-15 14:34 | W.PM.PROC2 ---
Procedure Note - Detailed Date of Procedure 06/15/22 Pre-op Diagnosis Gross hematuria, left ureteral stone Post-op Diagnosis Same Procedure Performed Cystoscopy, left ureteroscopy with stone extraction, left ureteral stent removal Surgeon Kyler Matthews MD Anesthesia General Description of Procedure Patient is brought to the operative suite where she was prepped/draped in a routine sterile fashion while in dorsal lithotomy position after the uneventful induction of a general LMA anesthetic. Cystoscopy is undertaken with a 19F rigid cystoscope. The tip of the indwelling stent is grasped and it is removed with ease. A 0.035 in glidewire was advanced through the stent in the left renal pelvis under fluoroscopy. The distal ureter was dilated with an 8/F10 F dilator. Ureteroscopy was undertaken with a short tapered semi-rigid ureteral scope. Her single stone in the distal left ureter is identified and extracted with ease using a 1.9 F escape disposable stone basket. There was minimal ureteral edema. Because of that and did the ease of this procedure, I opted not to place a stent. Scopes wire was removed she was taken recovery room good condition Estimated Blood Loss 0 Drains No Pathology Yes Complications No immediate complications Condition Stable Disposition PACU
[2022-06-15 14:38] LABS: Glucose Point of Care 115 mg/dl (65-105)
[2022-06-15] MEDS: KETOROLAC 15 MG/ML VIAL (*BKC) IV PUSH (14:56)
== END 2022-06-15 16:07 | disposition home or self-care (01) ==
PROVIDERS: PCP Family Medicine; Visit Provider Urology
PROC: (CPT 52352; principal; 2022-06-15 14:30)
DX: N20.1 Calculus of ureter (principal); E11.9 Type 2 diabetes mellitus without complications; E78.5 Hyperlipidemia, unspecified; E03.9 Hypothyroidism, unspecified; F41.9 Anxiety disorder, unspecified; F32.A Depression, unspecified; K21.9 Gastro-esophageal reflux disease without esophagitis; F42.8 Other obsessive-compulsive disorder; G25.81 Restless legs syndrome; D51.3 Other dietary vitamin B12 deficiency anemia; E55.9 Vitamin D deficiency, unspecified; E66.9 Obesity, unspecified; Z68.39 Body mass index [BMI] 39.0-39.9, adult; Z79.899 Other long term (current) drug therapy; Z79.84 Long term (current) use of oral hypoglycemic drugs
CPT/HCPCS: 52352; 82365; 82948; 87086; 88300; 93005; 99199; A9270; C1769; J1100; J1200; J1885; J2250; J2405; J2704; J3010; J3370; J7120

== ENCOUNTER 2022-07-10 07:34 | Outpatient (CLI) | payer BC, SELFPAY ==
--- NOTE | ~2022-07-10 | US_ITS ---
EXAMINATION: US renal BI DATE: 07/10/2022 08:02 INDICATION: Left ureteral stone TECHNIQUE: Multiple grayscale and Doppler ultrasound images of the kidneys were obtained. COMPARISON: None. FINDINGS: The right kidney measures 11.6 x 4.9 x 4.0 cm. The left kidney measures 11.4 x 4.7 x 6.2 cm . There is a 1.3 cm cyst of the left kidney lower pole. The kidneys demonstrate normal parenchymal ec hogenicity. There is no hydronephrosis. The bladder is normal. IMPRESSION: 1. Unremarkable kidneys without hydronephrosis. Reviewed, dictated and finalized at location B. CONSULTANT
== END 2022-07-10 07:35 | disposition home or self-care (01) ==
PROVIDERS: PCP Family Medicine; Visit Provider Urology
DX: N20.1 Calculus of ureter (principal)
CPT/HCPCS: 76775

== ENCOUNTER → 2022-08-29 14:21 | Outpatient (CLI) | payer BC, SELFPAY ==
--- NOTE | ~2022-08-29 | US_ITS ---
Pelvic ultrasound. Clinical History: Vaginal bleeding Technique: Realtime transabdominal and transvaginal scanning of the pelvis was performed. Color flow Doppler and Doppler spectral analysis were performed. Findings: The uterus is anteverted. The endometrial stripe has a thickness of 8 mm. No focal mass is identified. The right ovary measures 2.2 x 1.8 x 1.7 cm. No significant right ovarian or adnexal mass is seen. The left ovary measures 1.8 x 1.8 x 2.2 cm. No significant left ovarian or adnexal mass is seen. Vascular flow present in both ovaries on Doppler spectral analysis. There is no evidence of free fluid in the cul de sac. Impression: Unremarkable pelvic ultrasound. Reviewed, dictated and finalized at [facility]. Impression: Unremarkable pelvic ultrasound.
== END ==
PROVIDERS: PCP Nurse Practitioner; Visit Provider Nurse Practitioner
DX: N93.8 Other specified abnormal uterine and vaginal bleeding (principal)
CPT/HCPCS: 76830

== ENCOUNTER 2022-09-15 09:29 | Outpatient (CLI) | payer BC, SELFPAY ==
[2022-09-15 09:51] LABS: Hematocrit 41.6 % (37.0-47.0); Hemoglobin 13.3 g/dL (12.0-15.0)
[2022-09-15 10:01] LABS: Anion Gap 8 mmol/L (8-16); Blood Urea Nitrogen 13 mg/dL (7-17); Calcium 9.1 mg/dL (8.4-10.2); Carbon Dioxide 29 mmol/L (22-30); Chloride 101 mmol/L (98-107); Estimated Glomerular Filt Rate > 60; Glucose 148 mg/dL (65-110); Potassium 4.1 mmol/L (3.4-5.0); Sodium 138 mmol/L (137-145)
== END 2022-09-15 09:30 | disposition home or self-care (01) ==
LOC: ANHSURGERY 09:32
PROVIDERS: Anesthesiology; PCP Family Medicine; Visit Provider Obstetrics & Gynecology Gynecology
DX: E11.9 Type 2 diabetes mellitus without complications (principal); D64.9 Anemia, unspecified; Z01.818 Encounter for other preprocedural examination
CPT/HCPCS: 36415; 80048; 85014; 85018

== ENCOUNTER 2022-09-18 00:43 | Day surgery (SDC) | payer BC, SELFPAY ==
[2022-09-13 08:32] VITALS: BMI 39.7
--- NOTE | 2022-09-13 09:16 | PC.NURSE ---
Report to the Outpatient Waiting Room, entrance under the green pavilion located off [facility], at time _0900_ on date _09/18/22_. Planned Procedure Time: __1100_. Time changes happen often and if your time is changed the preop area will call you the afternoon before. - You and your visitor will be asked to self-screen and do not enter if you have any COVID symptoms. - Only one visitor is requested with a max of two and NO children visitors are allowed at this time. - The patient visitor may be requested to leave or wait in car when not with patient due to distancing restrictions. - A mask is optional within the hospital at this time. Patients may have clear liquids (water, carbonated beverages, clear teas, apple juice) until 3 hours prior to surgery with a maximum of 20 ounces. - No food from midnight until time of surgery Take the following medications with a SIP of water the morning of surgery: _LEVOTHYROXINE DO NOT STOP ANY OF YOUR OTHER PRESCRIPTION MEDICATIONS PRIOR TO SURGERY ?EXCEPT THE FOLLOWING Medications to discontinue per physician ___STOP ALL SUPPLEMENTS AND VITAMINS 09/15/22 Date to take last dose Please no make-up, nail malaysian, hairspray, perfume, deodorant, or body powder the day of surgery. No jewelry (including any body piercings) or valuables the day of surgery, leave them at home. Please take a shower or bath the night before, or the morning of, surgery with an antibacterial soap. Wear comfortable, loose fitting clothing. - Jewelry must be removed prior to entering the operating room. Rings and piercings that are not removed may be cut off. - The hospital will not accept responsibility for valuables. - Please leave all valuables, including medications, at home the day of surgery. If you are going home after surgery, a licensed concrete truck driver must drive you home. - NO public transportation without another adult if you receive anesthesia. - We recommend that an adult stay with you for 24 hours following discharge. - We also recommend that you do not drive, make important decision, drink alcoholic beverages, or take any drugs that were not prescribed by your health care provider for at least 24 hours after your discharge time. Follow any additional instructions given to you from your surgeon. If you or anyone in your household have experienced Covid symptoms in the past week, please notify your surgeon or the nurse liaison at the phone number below for possible testing. Telephone instructions given to _ALICJAY_and asked if any additional questions and then verbalized understanding. Patient advised to call surgeon office or pre surgery nurse liaison [phone] if any additional questions.
--- NOTE | 2022-09-18 08:35 | WPDANESEPPF ---
Anes - Initial Pre Proc Eval Procedure: Operation Date: 09/18/22 11:00 Proposed Procedures p Hysteroscopy Dilation and Curettage - Eulalia Chambers MD Date/Time: 09/18/22 08:35 Surgeon: Eulalia Chambers MD Pre Op Diagnosis: abnormal uterine bleeding Patient Data Age: 51 Gender: F Height: 1.63 m Weight: 105 kg Allergies Allergy/AdvReac Type Severity Reaction Status Date / Time codeine Allergy Intermediate breathing Verified 09/18/22 09:51 difficulty meperidine AdvReac Severe Vomiting Verified 09/18/22 09:51 Home Medications Medication Instructions Recorded Confirmed Type cholecalciferol (vitamin D3) 50 2,000 unit PO DAILY 05/05/19 09/18/22 History mcg (2,000 unit) tablet multivitamin 1 tablet PO DAILY 05/05/19 09/18/22 History omega-3 fatty acids 1,000 mg 1,000 mg PO DAILY 05/05/19 09/18/22 History capsule vitamin B12 500 mcg-folic acid 400 1 tablet PO DAILY 05/05/19 09/18/22 History mcg tablet CoQ-10 100 mg PO WEEKLY 03/29/20 09/18/22 History semaglutide 0.25 mg or 0.5 mg (2 1 mg subcut WEEKLY 10/25/20 09/18/22 History mg/1.5 mL) subcutaneous pen injector omeprazole 20 mg capsule,delayed 20 mg PO DAILY 12/06/21 09/18/22 History release Iron (ferrous sulfate) See Rx Instructions .Route .COMPLEX 03/16/22 09/18/22 History Lacto no.51-B.animalis 30 billion 1 cap PO DAILY 03/16/22 09/18/22 History cell-inulin 50 mg capsule,delay rel (Fortify Women Probiotic) ascorbate sodium (vitamin C) 30 mg PO 2XW 03/16/22 09/18/22 History ketorolac 10 mg tablet 10 mg PO DAILY PRN Pain 03/16/22 09/18/22 History diazepam 2 mg tablet (Valium) 0.5 mg PO HS #30 tabs 04/25/22 09/18/22 Rx glimepiride 2 mg tablet 4 mg PO BID 05/09/22 09/18/22 History sulfamethoxazole 800 1 tablet PO Q12H #20 tabs 06/11/22 09/18/22 Rx mg-trimethoprim 160 mg tablet acetaminophen 500 mg tablet 1,000 mg PO QID PRN Pain 06/13/22 09/18/22 History fexofenadine 180 mg tablet 180 mg PO HS 06/13/22 09/18/22 History levothyroxine 150 mcg tablet 150 mcg PO DAILY #90 tabs 06/16/22 09/18/22 Rx (Synthroid) blood sugar diagnostic (OneTouch #100 ea 09/11/22 09/18/22 Rx Ultra Test strips) ketorolac 10 mg tablet 10 mg PO Q6H PRN Pain 09/13/22 09/18/22 History Patient hx anesthesia problems: none Family hx anesthesia problems: none Results Review: All pre-operative results and documents have been reviewed as part of the pre-operative evaluation. [facility] Past Medical History Medical History (Updated 09/18/22 @ 09:33 by Eulalia Chambers MD) Anxiety Cabezas's esophagus with esophagitis (1994) EGD x2 with no evidence of Cabezas's as of May 2022. Class 3 severe obesity with serious comorbidity and body mass index (BMI) of 40.0 to 44.9 in adult (~2009) Depression Gastroesophageal reflux disease with esophagitis (~2015) Hyperlipidemia, unspecified (2005) Hypothyroidism (acquired) (2005) Obsessive compulsive disorder Palpitations Restless legs syndrome (~2015) Type 2 diabetes mellitus with other circulatory complications (~2005) Vitamin B12 deficiency anemia due to intrinsic factor deficiency (2015) Vitamin D deficiency, unspecified (2015) Surgical History Surgical History (Updated 09/18/22 @ 09:31 by Eulalia Chambers MD) History of ankle surgery 2006 History of cystoscopy History of ureter stent S/P bilateral breast reduction S/P cholecystectomy (~2002) S/P tonsillectomy (~1997) S/P wrist surgery 2006 Status post cervical polyp removal Status post hysteroscopic polypectomy 2019 Family History Family History Mother Family history of osteoporosis Patient's mother is in good health Father Family history of lung cancer, Onset Age: 64 Acute myocardial infarction, Onset Age: 64 Grandparent Family history of lung cancer, Onset Age: 94 Family history of malignant neoplasm of breast, Onset Age: 6
--- NOTE | 2022-09-18 09:26 | WPDHPUPDATE1 ---
History and Physical Update Update Date/Time: 09/18/22 09:26 History and Physical has been reviewed, including an updated exam of the patient. There are NO changes in the patient's condition. Risks, benefits, and alternatives have been discussed and questions answered. Patient agrees to proceed with procedure.
--- NOTE | 2022-09-18 09:26 | PM.HPGS ---
History of Present Illness History of Present Illness Consent: Risks, benefits, and alternatives have been discussed and questions answered. Patient agrees to proceed with procedure. Chief complaint: abnormal uterine bleeding Narrative: Ny Shetty is a 51 year old female with a change in her periods. The patient had to heavy cycles for the prior 3 months with clots and prolonged bleeding. It was recommended to proceed with D&C hysteroscopy. Risks of infection, bleeding, perforation, and possible pathology were discussed. The patient voices understanding and agrees to p Review of Systems Review of Systems: not repeated day of surgery; patient states no changes in status [facility] Past Medical History Medical History (Updated 09/18/22 @ 09:33 by Eulalia Chambers MD) Anxiety Cabezas's esophagus with esophagitis (1994) EGD x2 with no evidence of Cabezas's as of May 2022. Class 3 severe obesity with serious comorbidity and body mass index (BMI) of 40.0 to 44.9 in adult (~2009) Depression Gastroesophageal reflux disease with esophagitis (~2015) Hyperlipidemia, unspecified (2005) Hypothyroidism (acquired) (2005) Obsessive compulsive disorder Palpitations Restless legs syndrome (~2015) Type 2 diabetes mellitus with other circulatory complications (~2005) Vitamin B12 deficiency anemia due to intrinsic factor deficiency (2015) Vitamin D deficiency, unspecified (2015) Surgical History Surgical History (Updated 09/18/22 @ 09:31 by Eulalia Chambers MD) History of ankle surgery 2006 History of cystoscopy History of ureter stent S/P bilateral breast reduction S/P cholecystectomy (~2002) S/P tonsillectomy (~1997) S/P wrist surgery 2006 Status post cervical polyp removal Status post hysteroscopic polypectomy 2019 Family History Family History Mother Family history of osteoporosis Patient's mother is in good health Father Family history of lung cancer, Onset Age: 64 Acute myocardial infarction, Onset Age: 64 Grandparent Family history of lung cancer, Onset Age: 94 Family history of malignant neoplasm of breast, Onset Age: 63 Other Diabetes mellitus Family history of malignant neoplasm Social History Social History Social History: Surrogate medical decision maker: Marilia Tish, mother. Code status: Full code. Smoking status: Never smoker Second hand tobacco smoke exposure: No Alcohol intake: never Substance use: never Substance use type: does not use Lack of Transportation: No Lack of Food: Never True Current Housing: I Have Housing Concerned About Future Housing: No Difficulty Paying Gas/Electric Bills: No Difficulty Paying for Meds: No Currently Unemployed: No Education: Bachelor's Degree Difficulty w/ Childcare or Family Care: No Living arrangements: with family Additional living arrangements comments: Lives alone in [place]. Not , no children. 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 [employer] Spiritual care concerns: No Agree to blood products: Yes Meds Home Medications and Allergies Home Medications Medication Instructions Recorded Confirmed Type cholecalciferol (vitamin D3) 50 2,000 unit PO DAILY 05/05/19 09/13/22 History mcg (2,000 unit) tablet multivitamin 1 tablet PO DAILY 05/05/19 09/13/22 History omega-3 fatty acids 1,000 mg 1,000 mg PO DAILY 05/05/19 09/13/22 History capsule vitamin B12 500 mcg-folic acid 400 1 tablet PO DAILY 05/05/19 09/13/22 History mcg tablet CoQ-10 100 mg PO WEEKLY 03/29/20 09/13/22 History semaglutide 0.25 mg or 0.5 mg (2 1 mg subcut WEEKLY 10/25/20 09/13/22 History mg/1.5 mL) subcutaneous pen injector omeprazole 20 mg capsule,delayed 20 mg PO DAILY 12/06/21 09/13/22 History rel
[2022-09-18 09:35] VITALS: BP 144/74; PULSE 80; RESP 16; TEMP 36.4; O2SAT 100
[2022-09-18 09:49] LABS: Glucose Point of Care 129 mg/dl (65-105)
[2022-09-18] MEDS: ACETAMINOPHEN 500 MG TABLET 1000 MG PO (10:00)
[2022-09-18] MEDS: LACTATED RINGERS 1,000 ML 30 ML IV CONT (10:00)
[2022-09-18] MEDS: LIDOCAINE HCL 1% LOCAL INJ 20 ML VIAL 10 ML INFILTRATE (11:13)
--- NOTE | 2022-09-18 11:19 | P.OP_ITS ---
Procedure Note - Detailed Date of Procedure 09/18/22 Pre-op Diagnosis Menorrhagia Post-op Diagnosis Same Procedure Performed D&C hysteroscopy Surgeon Eulalia Chambers MD Anesthesia MAC and Local Findings cervix is stenotic; uterus is very anteverted; endometrium appears atrophic Description of Procedure The patient is taken to the operating room and placed under anesthesia in the dorsal lithotomy position. She was prepped and draped in the usual sterile fashion. [place] speculum was placed in the vagina and the cervix grasped on the anterior lip with a tenaculum. The cervix is injected in each quadrant with 1% lidocaine. The uterus was attempted to be sounded and noted to be stenotic. The os Finders are used and the small dilators used and was able to proceed a little bit further to approximately 5cm. The hysteroscope was placed and the en dometrial cavity is noted to be very anterior. The speculum was removed and the hysteroscope was placed through water dissection through the endometrial cavity opening. The cavity appears grossly normal. The hysteroscope was removed and the uterus is sounded to 8cm. The sharp curette is used to curette the endometrium until a good uterine cry was noted in all areas. All instruments are removed. Minimal materials obtained consistent with the atrophic appearance. Sponge, needle, and instrument counts are correct per the OR staff. The patient was awakened from anesthesia and taken to recovery in stable condition. Estimated Blood Loss 5 Drains No Packing No Pathology Yes ( Endometrial curettings) Complications No immediate complications Condition Stable Disposition PACU
[2022-09-18 11:22] VITALS: BP 167/84; PULSE 77; RESP 13; O2SAT 97
[2022-09-18] MEDS: KETOROLAC 15 MG/ML VIAL (*BKC) IV PUSH (11:40)
[2022-09-18 11:44] LABS: Glucose Point of Care 102 mg/dl (65-105)
--- NOTE | 2022-09-18 11:45 | SUR.PHASEII ---
pt c/o increase pain and refused narcotics at this time. dr recio aware. will continue to monitor.
[2022-09-18 12:10] VITALS: BP 176/82; PULSE 65; RESP 16; O2SAT 100
[2022-09-18 12:40] VITALS: BP 165/60; PULSE 68; RESP 16
== END 2022-09-18 12:41 | disposition home or self-care (01) ==
PROVIDERS: PCP Family Medicine; Visit Provider Obstetrics & Gynecology Gynecology
PROC: 0U5B8ZZ Destruction of Endometrium, Via Natural or Artificial Opening Endoscopic (ICD-10-PCS; CPT 58563; principal; 2022-09-18 11:00)
DX: N92.0 Excessive and frequent menstruation with regular cycle (principal); N88.2 Stricture and stenosis of cervix uteri; E11.9 Type 2 diabetes mellitus without complications; E03.9 Hypothyroidism, unspecified; E78.5 Hyperlipidemia, unspecified; K21.9 Gastro-esophageal reflux disease without esophagitis; F41.9 Anxiety disorder, unspecified; F32.A Depression, unspecified; F42.8 Other obsessive-compulsive disorder; G25.81 Restless legs syndrome; E55.9 Vitamin D deficiency, unspecified; D51.0 Vitamin B12 deficiency anemia due to intrinsic factor deficiency; E66.01 Morbid (severe) obesity due to excess calories; Z68.41 Body mass index [BMI] 40.0-44.9, adult; Z79.84 Long term (current) use of oral hypoglycemic drugs
CPT/HCPCS: 58558; 36415; 80048; 82948; 85014; 85018; 88305; A9270; J1885; J2250; J2704; J7120

== ENCOUNTER → 2022-10-26 07:09 | Outpatient (CLI) | payer BC, SELFPAY ==
--- NOTE | ~2022-10-26 | MM_ITS ---
EXAMINATION: MM screening yamilex BI w darlene HISTORY: Screening mammogram TECHNIQUE: Craniocaudal and mediolateral oblique 3-D tomosynthesis images were obtained and synthetic 2-D images were generated. CAD analysis was submitted and interpreted. COMPARISON: 10/24/2021, 10/22/2020, 05/23/2019 BREAST PARENCHYMAL COMPOSITION: There are scattered areas of fibroglandular density. FINDINGS: Scattered benign-appearing calcifications are present. No suspicious mass, calcification, o r architectural distortion are identified in either breast to suggest malignancy. There has been no s uspicious interval change. IMPRESSION: 1. No mammographic evidence of malignancy. 2. Recommend routine screening mammography in one year. BI-RADS Category 2: Benign finding(s). Reviewed, dictated and finalized at location A.
== END ==
PROVIDERS: PCP Nurse Practitioner; Visit Provider Nurse Practitioner
DX: Z12.31 Encounter for screening mammogram for malignant neoplasm of breast (principal)
CPT/HCPCS: 77063; 77067

== ENCOUNTER → 2023-01-03 14:18 | Outpatient (CLI) | payer BC, SELFPAY ==
--- NOTE | ~2023-01-03 | XR_ITS ---
XR thoracic spine 3V DATE: 01/03/2023 14:37 INDICATION: Thoracic spine pain TECHNIQUE: AP, lateral, swimmer views COMPARISON: None FINDINGS: There is mild dextroscoliosis of the upper thoracic spine and lesser levoscoliosis of the l ower thoracic spine. No fracture or dislocation or bone destruction. The thoracic pedicles and interspaces are intact. The re is slight degenerative spurring. No paraspinal soft tissue thickening. IMPRESSION: Scoliosis and slight degenerative spurring Reviewed, dictated and finalized at location B.
== END ==
PROVIDERS: PCP Family Medicine; Visit Provider Family Medicine
DX: M54.6 Pain in thoracic spine (principal); M41.9 Scoliosis, unspecified
CPT/HCPCS: 72072

== ENCOUNTER → 2023-01-31 15:22 | Outpatient (CLI) | payer BC, SELFPAY ==
--- NOTE | ~2023-01-31 | MR_ITS ---
EXAMINATION: MR abdomen wo/w con DATE: 01/31/2023 16:14 INDICATION: Abnormal findings on diagnostic imaging of liver TECHNIQUE: Magnetic resonance imaging (MRI) of the abdomen was performed without and with 20 mL Multi yasmany intravenous contrast. Sequences included coronal T2-weighted SS-FSE, coronal and axial FS 2D-F IESTA, axial STIR FSE, axial T2-weighted SS-FSE, axial T2-weighted FS SS-FSE, axial diffusion-weighte d SE, axial dual-echo T1-weighted FSPGR, and axial and coronal T1-weighted LAVA. Postcontrast axial T 1-weighted LAVA images were obtained in a time course. Postcontrast coronal T1-weighted LAVA images w ere obtained. COMPARISON: CT dated 06/11/2022 FINDINGS: Heart size is normal. No pericardial or pleural effusion. Susceptibility artifact corresponding to ch olecystectomy clips the gallbladder fossa. 13 mm T2 hyperintense lesion in segment 2 of the liver wit h avid arterial phase enhancement which persists through 10 minutes of imaging most consistent with a hemangioma. No other hepatic lesions identified. Spleen, pancreas and bilateral adrenal glands are n ormal. There are few bilateral T2 hyperintense nonenhancing renal cysts the largest on the left measu ring 1.4 cm. Visual is portions of the bowels are unremarkable. Normal bone marrow signal throughout. No pathologically enlarged abdominal lymphadenopathy. IMPRESSION: 1. 1.3 cm lesion in segment 2 of the liver with avid arterial phase enhancement which persists throug h 10 minutes most consistent with a hemangioma. Reviewed, dictated and finalized at location A. IMPRESSION: 1. 1.3 cm lesion in segment 2 of the liver with avid arterial phase enhancement which persists through 10 minutes most consistent with a hemangioma.
== END ==
PROVIDERS: PCP Family Medicine; Visit Provider Family Medicine
DX: R93.2 Abnormal findings on diagnostic imaging of liver and biliary tract (principal); K76.9 Liver disease, unspecified
CPT/HCPCS: 74183; A9577

== ENCOUNTER 2023-03-15 07:00 | Outpatient (NON) | payer BC, SELFPAY | END 2023-03-15 07:01 | disposition home or self-care (01) | PROVIDERS: PCP Family Medicine; Visit Provider Nurse Practitioner | DX: D22.39 Melanocytic nevi of other parts of face (principal) | CPT/HCPCS: 88305 ==

== ENCOUNTER → 2023-05-26 08:23 | Outpatient (CLI) | payer BC, SELFPAY ==
--- NOTE | ~2023-05-26 | US_ITS ---
EXAMINATION: US transvaginal DATE: 05/26/2023 08:45 INDICATION: Left pelvic pain Comparison:Ultrasound dated 08/29/2022 TECHNIQUE: Multiple endovaginal sonographic images of the pelvis performed. FINDINGS: The uterus measures 8.1 x 4.4 x 5.4 cm. The endometrial complex measures 5 mm. The right ovary measures 4.1 x 2.6 x 3.6 cm and the left ovary is not visualized. There is a right ov tony cyst measuring 2.6 cm. There is no free fluid in the pelvis. There are no abnormal masses seen on either side. IMPRESSION: 1. Right ovarian cyst measuring 2.6 cm. Reviewed, dictated and finalized at location A. IFICATIONS CHECKER
== END ==
PROVIDERS: PCP Nurse Practitioner; Visit Provider Nurse Practitioner
DX: N83.201 Unspecified ovarian cyst, right side (principal)
CPT/HCPCS: 76830

== ENCOUNTER 2023-07-19 11:15 | Emergency (ER) | payer BC, SELFPAY ==
--- NOTE | 2023-07-19 11:22 | ED.GENADULT ---
HPI - General Adult General Chief complaint: Urogenital-Female Stated complaint: Abdominal Pain Source: patient, RN notes reviewed and old records reviewed Mode of arrival: ambulatory Limitations: no limitations History of Present Illness HPI narrative: 52-year-old female presents to [facility] with complaints left lower abdominal pain that radiates into the pelvic area this started in May. Patient states was seen by her OBGYN and had ultrasound but was unable to see her ovary. Patient states has been unable to get back into OBGYN but does have an appointment next Sunday. Related Data Home Medications Medication Instructions Recorded Confirmed cholecalciferol (vitamin D3) 50 2,000 unit PO DAILY 05/05/19 04/18/23 mcg (2,000 unit) tablet multivitamin 1 tablet PO DAILY 05/05/19 04/18/23 omega-3 fatty acids 1,000 mg 1,000 mg PO DAILY 05/05/19 04/18/23 capsule vitamin B12 500 mcg-folic acid 400 1 tablet PO DAILY 05/05/19 04/18/23 mcg tablet CoQ-10 100 mg PO WEEKLY 03/29/20 04/18/23 Iron (ferrous sulfate) See Rx Instructions .Route .COMPLEX 03/16/22 04/18/23 Lacto no.51-B.animalis 30 billion 1 cap PO DAILY 03/16/22 04/18/23 cell-inulin 50 mg capsule,delay rel (Fortify Women Probiotic) ascorbate sodium (vitamin C) 30 mg PO 2XW 03/16/22 04/18/23 ketorolac 10 mg tablet 10 mg PO DAILY PRN Pain 03/16/22 04/18/23 fexofenadine 180 mg tablet 180 mg PO HS 06/13/22 04/18/23 glimepiride 2 mg tablet 2 mg PO BID 01/03/23 04/18/23 semaglutide 0.25 mg or 0.5 mg (2 1.25 mg subcut WEEKLY 01/03/23 04/18/23 mg/1.5 mL) subcutaneous pen injector Allergies Allergy/AdvReac Type Severity Reaction Status Date / Time codeine Allergy Intermediate breathing Verified 07/19/23 11:29 difficulty meperidine AdvReac Severe Vomiting Verified 07/19/23 11:29 Review of Systems Constitutional: Constitutional: Reports no additional constitutional complaints, Denies body ache(s), Denies chills, Denies fatigue, Denies fever(s) and Denies headache(s) Eyes: Eyes: Reports no additional eye complaints and Denies blurry vision ENT: Reports system reviewed and no additional complaints, except as documented, Denies vertigo, Denies dizziness, Denies ear discharge, Denies otalgia, Denies facial pain, Denies headache(s), Denies nasal congestion, Denies nasal discharge, Denies sinus pain, Denies sinus pressure and Denies sore throat Cardiovascular: Cardiovascular: Reports no additional cardiovascular complaints, Denies chest pain, Denies chest pain at rest, Denies rapid heart rate and Denies dyspnea Respiratory: Respiratory: Reports no additional respiratory complaints, Denies chest congestion, Denies cough, Denies pain on inspiration, Denies pain with cough and Denies dyspnea Gastrointestinal: Gastrointestinal: Reports abdominal pain, Denies diarrhea, Denies nausea and Denies vomiting Integumentary/Breasts: Skin/Breast: Denies rash Neurologic: Reports system reviewed and no additional complaints, except as documented, Denies vertigo, Denies dizziness and Denies headache(s) Endocrine: Endocrine: Denies fatigue PMFSH Past Medical History Medical History 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 Class 3 severe obesity with serious comorbidity and body mass index (BMI) of 40.0 to 44.9 in adult (~2009) Depression Gastroesophageal reflux disease with esophagitis (~2015) Hyperlipidemia, unspecified (2005) Hypothyroidism (acquired) (2005) Kidney stone Obesity Obsessive compulsive disorder Restless legs syndrome (~2015) Type 2 diabetes mellitus with other circulatory complications (~2005) Ureteral stone with hydronephrosis (~05/2022) Vitamin D deficiency, unspecified (2015) Surgical History Surgical History (Reviewed 07/19/23 @ 11:46 by
[2023-07-19 11:36] VITALS: BP 141/89; PULSE 92; RESP 16; TEMP 36.8; O2SAT 100
== END 2023-07-19 11:55 | disposition home or self-care (01) ==
PROVIDERS: Emergency Provider Registered Nurse; PCP Family Medicine
DX: R10.32 Left lower quadrant pain (principal); E78.5 Hyperlipidemia, unspecified; E03.9 Hypothyroidism, unspecified; E11.9 Type 2 diabetes mellitus without complications
CPT/HCPCS: 81003; 99212; G0463

== ENCOUNTER 2023-10-29 07:13 | Outpatient (CLI) | payer BC, SELFPAY ==
--- NOTE | ~2023-10-29 | MM_ITS ---
EXAMINATION: MM screening yamilex BI w darlene HISTORY: Screening TECHNIQUE: Craniocaudal and mediolateral oblique 3-D tomosynthesis images were obtained and synthetic 2-D images were generated. CAD analysis was submitted and interpreted. COMPARISON: Comparison to multiple prior studies sequentially, with oldest reviewed study dated . BREAST PARENCHYMAL COMPOSITION: Not dense: There are scattered areas of fibroglandular density. FINDINGS: There is no evidence of suspicious mass, calcification, or architectural distortion to sugg est malignancy in either breast. There has been no suspicious interval change. IMPRESSION: 1. No mammographic evidence of malignancy. 2. Recommend routine screening mammography in one year. BI-RADS Category 1: Negative Reviewed, dictated and finalized at location A.
== END 2023-10-29 07:14 ==
LOC: MICIMG 07:14
PROVIDERS: PCP Family Medicine; Visit Provider Nurse Practitioner
DX: Z12.31 Encounter for screening mammogram for malignant neoplasm of breast (principal)
CPT/HCPCS: 77063; 77067

== ENCOUNTER 2024-03-11 03:05 | Emergency (ER) | payer BC, SELFPAY ==
[2024-03-11 03:09] VITALS: BP 190/86; PULSE 82; RESP 19; TEMP 36.4; O2SAT 100
--- NOTE | 2024-03-11 03:12 | ECG_ITS ---
Test Date: 2024-03-11 03:17:18 Measurements Intervals [place] Rate: 67 P: -5 [place]: 174 QRS: 22 QRSD: 78 T: 0 QT: 383 QTc: 407 Interpretive Statements SINUS RHYTHM LOW QRS VOLTAGE IN PRECORDIAL LEADS [QRS DEFLECTION < 1.0 mV IN CHEST LEADS] No previous ECG available for comparison Electronically Signed On 03-11-2024 10:10:00 CDT by Jeramie Osborn M.D.
[2024-03-11 03:46] VITALS: RESP 18; O2SAT 98
[2024-03-11 03:47] VITALS: BP 183/94; O2SAT 99
--- NOTE | 2024-03-11 03:48 | PC.NURSE ---
pt states that for the last week she has been light headed and dizzy on and off. She states she checked her blood pressure at home [employer] and it was really high . Pt also says that she has had pain in between her shoulder blades and SOB on and off for the last week, but she denies any pain or SOB at this time
[2024-03-11 04:09] LABS: Basophils Percent Auto 0.4 % (0.2-1.2); Eosinophils Absolute Auto 0.2 K/mm3 (0-0.3); Hematocrit 41.3 % (37.0-47.0); Hemoglobin 13.7 g/dL (12.0-15.0); Immature Granulocyte Absolute 0.05 K/mm3 (0.00-0.031); Immature Granulocyte Percent A 0.6 % (0-0.5); Lymphocytes Absolute Auto 2.67 K/mm3 (0.9-3.2); Lymphocytes Percent Auto 29.7 % (18.3-44.2); Mean Corpuscular HGB Conc 33.2 g/dl (32-36); Mean Corpuscular Hemoglobin 29.3 pg (26-34); Mean Corpuscular Volume 88.4 fl (80-100); Mean Platelet Volume 11.1 fl (7.4-10.4); Monocytes Absolute Auto 0.7 K/mm3 (0.1-0.6); Monocytes Percent Auto 7.3 % (2.6-8.5); Neutrophils Absolute Auto 5.4 K/mm3 (1.3-6.7); Platelet Count Result 234 k/mm3 (150-375); Red Blood Count 4.67 M/mm3 (4.2-5.4); Red Cell Distribution Width 13.5 % (11.5-14.5)
[2024-03-11 04:19] LABS: Alanine Aminotransferase 22 U/L (6-35); Albumin Level 4.4 g/dL (3.5-5.1); Alkaline Phosphatase 97 U/L (38-126); Anion Gap 9 mmol/L (4-12); Aspartate Amino Transferase 25 U/L (14-36); Bilirubin,Total 0.5 mg/dL (0.2-1.3); Blood Urea Nitrogen 15 mg/dL (7-17); Carbon Dioxide 26 mmol/L (22-30); Chloride 103 mmol/L (98-107); Estimated CRCL calculation 84 ml/min; Estimated Glomerular Filt Rate > 60; Glucose 203 mg/dL (65-110); Potassium 4.2 mmol/L (3.4-5.0); Sodium 138 mmol/L (137-145)
[2024-03-11 04:36] LABS: D Dimer < 0.27 ug/mL (<0.48)
[2024-03-11 05:55] VITALS: BP 155/83; PULSE 82; RESP 20; O2SAT 98
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
[2024-03-11 06:20] VITALS: BP 147/85; PULSE 87; RESP 20; O2SAT 99
== END 2024-03-11 06:22 | disposition home or self-care (01) ==
LOC: ANHED 06:12
PROVIDERS: Emergency Provider Emergency Medicine; PCP Family Medicine
DX: I10 Essential (primary) hypertension (principal); T14.8XXA Other injury of unspecified body region, initial encounter; X58.XXXA Exposure to other specified factors, initial encounter; E78.5 Hyperlipidemia, unspecified; E03.9 Hypothyroidism, unspecified; E11.9 Type 2 diabetes mellitus without complications; E55.9 Vitamin D deficiency, unspecified; K21.9 Gastro-esophageal reflux disease without esophagitis; F41.9 Anxiety disorder, unspecified; F32.A Depression, unspecified; F42.8 Other obsessive-compulsive disorder; E66.01 Morbid (severe) obesity due to excess calories; Z68.41 Body mass index [BMI] 40.0-44.9, adult; Z79.84 Long term (current) use of oral hypoglycemic drugs
CPT/HCPCS: 36415; 80053; 85025; 85380; 93005; 99283

== ENCOUNTER 2024-03-27 19:43 | Observation (INO) | payer BC, SELFPAY ==
--- NOTE | ~2024-03-27 | XR_ITS ---
EXAMINATION: XR chest 2V DATE: 03/27/2024 20:32 INDICATION: Chest pain. Shortness of breath. TECHNIQUE: Frontal and lateral views of the chest were obtained. COMPARISON: Chest 2 views 10/28/2018 FINDINGS: There is no pneumonia, pleural effusion, or pneumothorax. The heart size is normal. Surgica l clips in the right upper quadrant are likely from cholecystectomy. There is mild chronic anterior w edging of multiple mid thoracic vertebral bodies. IMPRESSION: 1. No acute cardiopulmonary disease. Reviewed, dictated and finalized at location A.
[2024-03-27 19:46] VITALS: BP 151/84; PULSE 85; RESP 17; TEMP 36.6; O2SAT 100
--- NOTE | 2024-03-27 19:46 | ECG_ITS ---
Test Date: 2024-03-27 20:05:29 Measurements Intervals [place] Rate: 74 P: -3 [place]: 176 QRS: 18 QRSD: 83 T: 11 QT: 373 QTc: 416 Interpretive Statements SINUS RHYTHM LOW QRS VOLTAGE IN PRECORDIAL LEADS [QRS DEFLECTION < 1.0 mV IN CHEST LEADS] NONSPECIFIC T-WAVE ABNORMALITY Compared to ECG 03/11/2024 03:17:18 NO SIGNIFICANT CHANGES Electronically Signed On 03-28-2024 13:36:00 CDT by Kavin Gonzalez M.D.
[2024-03-27] MEDS: ASPIRIN 81 MG CHEWABLE TABLET 324 MG PO (20:02)
[2024-03-27 20:11] LABS: Basophils Percent Auto 0.4 % (0.2-1.2); Eosinophils Absolute Auto 0.2 K/mm3 (0-0.3); Eosinophils Percent Auto 1.9 % (0-4.4); Hemoglobin 12.8 g/dL (12.0-15.0); Immature Granulocyte Absolute 0.06 K/mm3 (0.00-0.031); Immature Granulocyte Percent A 0.6 % (0-0.5); Lymphocytes Absolute Auto 3.21 K/mm3 (0.9-3.2); Lymphocytes Percent Auto 31.7 % (18.3-44.2); Mean Corpuscular HGB Conc 33.7 g/dl (32-36); Mean Corpuscular Hemoglobin 29.9 pg (26-34); Mean Corpuscular Volume 88.8 fl (80-100); Mean Platelet Volume 11.4 fl (7.4-10.4); Monocytes Absolute Auto 0.8 K/mm3 (0.1-0.6); Monocytes Percent Auto 8.1 % (2.6-8.5); Neutrophils Absolute Auto 5.8 K/mm3 (1.3-6.7); Neutrophils Percent Auto 57.3 % (45.5-73.1); Platelet Count Result 210 k/mm3 (150-375); Red Blood Count 4.28 M/mm3 (4.2-5.4); Red Cell Distribution Width 13.4 % (11.5-14.5); White Blood Count 10.1 K/mm3 (4.5-10.0)
[2024-03-27 20:21] LABS: Alanine Aminotransferase 24 U/L (6-35); Albumin Level 4.1 g/dL (3.5-5.1); Alkaline Phosphatase 79 U/L (38-126); Anion Gap 8 mmol/L (4-12); Aspartate Amino Transferase 24 U/L (14-36); Bilirubin,Total 0.3 mg/dL (0.2-1.3); Blood Urea Nitrogen 15 mg/dL (7-17); Calcium 9.1 mg/dL (8.4-10.2); Carbon Dioxide 26 mmol/L (22-30); Chloride 102 mmol/L (98-107); Estimated CRCL calculation 107 ml/min; Estimated Glomerular Filt Rate > 60; Glucose 199 mg/dL (65-110); Lipase 164 U/L (23-300); Potassium 3.5 mmol/L (3.4-5.0); Sodium 136 mmol/L (137-145)
[2024-03-27 20:23] LABS: Prothrombin Time 13.8 Seconds (11.1-14.7)
[2024-03-27 20:24] LABS: Partial Thromboplastin Time 28.7 Seconds (22.3-36.8)
[2024-03-27 20:32] LABS: Troponin I < 0.012 ng/mL (0.000-0.034)
[2024-03-27 20:52] VITALS: BP 121/64; PULSE 70; RESP 18; O2SAT 99
[2024-03-27] MEDS: NITROGLYCERIN OINTMENT 1 INCH DOSE 0.5 INCH TRANSDERM (20:52)
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
[2024-03-27 22:16] VITALS: BP 124/67; PULSE 70; RESP 18; O2SAT 97
[2024-03-27 22:32] VITALS: BMI 40.1
--- NOTE | 2024-03-27 22:37 | ADMGEN ---
This patient, Ny Shetty, was admitted to IMU Room 204-01. Patient/family oriented to hospital policies and general routines including ID bracelet, bed and alarms, visiting hours, pain management, procedures, bathroom and other care routines, personal items, smoking policy, room service/diet, and visiting hours. Information on how to activate the Rapid Response Team has been discussed. Patient/Family are encouraged to report perceived risks to care and to ask questions if they do not understand what they are told or what they should do.
[2024-03-27 23:34] VITALS: BP 122/54; PULSE 80; RESP 18; TEMP 36.6; O2SAT 100
--- NOTE | 2024-03-27 23:35 | ECG_ITS ---
Test Date: 2024-03-27 23:45:28 Measurements Intervals [place] Rate: 75 P: 173 TN: 173 QRS: 166 QRSD: 90 T: 178 QT: 391 QTc: 438 Interpretive Statements SINUS RHYTHM ARM LEADS REVERSED [INVERTED P AND QRS IN I] ATYPICAL ECG Compared to ECG 03/27/2024 20:05:29 LEAD REVERSAL NOW PRESENT Electronically Signed On 03-28-2024 13:38:27 CDT by Kavin Gonzalez M.D.
[2024-03-27 23:40] VITALS: PULSE 84; PULSE 88; RESP 18; O2SAT 100
[2024-03-28] VITALS (22 sets, daily range): BP systolic 109–154; BP diastolic 52–80; PULSE 70–90; RESP 15–22; TEMP 36.4–36.8; O2SAT 95–99
[2024-03-28 00:04] LABS: Troponin I < 0.012 ng/mL (0.000-0.034)
[2024-03-28] MEDS: NITROGLYCERIN OINTMENT 1 INCH DOSE TRANSDERM ×2 (00:23→14:15)
[2024-03-28 03:55] LABS: Troponin I < 0.012 ng/mL (0.000-0.034)
[2024-03-28] MEDS: ACETAMINOPHEN 325 MG TABLET 650 MG PO (04:08)
--- NOTE | 2024-03-28 06:20 | ECHO_ITS ---
Patient Info Name: Ny Shetty Age: 53 years : 1970 Gender: Female Ht: 64 in Wt: 231 lbs BSA: 2.23 m2 HR: 74 bpm BP: 112 / 52 mmHg Heart Rhythm: Sinus Rhythm Technical Quality: Good Exam Date: 03/28/2024 7:19 AM Exam Location: Echo Lab Patient Status: Inpatient Admit Date: 03/27/2024 Staff Ordering Physician: Anjelica Neumann DO Ware Server: Alma Topete RDCS Attending Provider: Anjelica Neumann DO Referring Physician: Nel BACA; Exam Type: CA echo dop color flow w con Study Info Indications R07.9 - Chest pain, unspecified Complete two-dimensional, color flow and Doppler transthoracic echocardiogram is performed with contrast to opacify the left ventricle and to improve the deliniation of the left ventricle endocardial borders. Contrast/Agitated Saline Contrast/Ag. Saline: Definity Amount: 2.00 ml Administered By: Alma Topete RDCS Existing IV Access: Yes IV Access Condition: patent with no signs of infiltration Summary 1. Left ventricular chamber dimension is normal. 2. Left ventricular systolic function is normal, estimated at 60-65%. 3. There is mildly increased left ventricular wall thickness. 4. The left ventricular diastolic function is grade I diastolic dysfunction. 5. Right ventricular systolic function is normal. 6. Left atrial chamber dimension is mildly enlarged. 7. There is mild tricuspid valve regurgitation. Left Ventricle Left ventricular chamber dimension is normal. Left ventricular systolic function is normal, estimated at 60-65%. There is mildly increased left ventricular wall thickness. The left ventricular diastolic function is grade I diastolic dysfunction. Right Ventricle Right ventricular chamber dimension is normal. Right ventricular systolic function is normal. Left Atria Left atrial chamber dimension is mildly enlarged. Right Atria Right atrial chamber dimension is normal. Atrial Septum Intact interatrial septum visualized by color flow imaging. Aortic Valve The aortic valve is trileaflet. There is mild aortic valve sclerosis. There is no aortic valve stenosis. There is no aortic valve regurgitation. Pulmonic Valve The pulmonic valve is not well visualized. There is trace pulmonic regurgitation. Mitral Valve There is trace mitral valve regurgitation. The mitral valve annulus is mildly calcified. Tricuspid Valve There is mild tricuspid valve regurgitation. Pericardium/Pleural There is no pericardial effusion. Inferior Vena Cava Normal inferior vena cava with >50% collapse upon inspiration consistent with normal right atrial pressure, 3 mmHg. Aorta The aortic root size at the sinus of Valsalva is normal. Left Ventricular Outflow Tract Name Value Normal LVOT 2D LVOT Diameter 2.00 cm LVOT Doppler LVOT Peak Gradient 6 mmHg LVOT Mean Gradient 3 mmHg LVOT VTI 23.84 cm LVOT VTI/AV VTI Ratio 0.78 LVOT Stroke Volume 74.81 ml LVOT CO 5.42 l/min LVOT CI 2.4
[2024-03-28] MEDS: PERFLUTREN LIPID MICROSPHERES 1.5 ML VIAL DILUTED TO 10 ML TOTAL VOLUME IV PUSH (07:44)
--- NOTE | 2024-03-28 08:05 | IVDEFINITY ---
Prior to administration of IV Definity the patient was educated on the risks and benefits of the imaging enhancing agent including potential adverse side effects. The patient verbalized understanding. Allergies were verified. No exclusion criteria were identified and at least one of the following inclusion criteria were met: 1) physician request, 2) patient technically difficult to image (per the [place] [employer]chocardi[employer] guidelines of two or more segments not discernable within the apical view), or 3) questionable left ventricular function. ?
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
--- NOTE | 2024-03-28 10:04 | P.PCNCC_ITS ---
Cardiac Cath Procedure Note Date of procedure:: 03/28/24 Performing physician:: CATHETERIZATION LABORATORY REPORT Procedure Date: 03/28/2024 Chief Recordist: Kavin Gonzalez M.D., [facility]? Referring Physician: Kavin Gonzalez M.D.? Anesthesia: Versed and Fentanyl were ordered and given in my presence at 10:38, procedure ended at 11:05. Supervision of nurse monitored moderate sedation with Versed was provided for 27 minutes. Total of Versed 2mg was administered by the Senior Quality Engineer RN Dannie Goodman. Pre-op Diagnosis: Coronary artery disease Post-op Diagnosis: 1. Angiographically normal coronary arteries Procedure(s): 1. Moderate sedation 2. Ultrasound-guided access of the right radial artery 3. Coronary angiography Access Site: Right radial artery Brief History and Clinical Indications: Patient is a 53 year old female who is referred for [facility] for chest pain. All risks, benefits and alternatives to left heart catheterization with or witho ut percutaneous coronary intervention was discussed at length with the patient. Risk of complications including but not limited to bleeding, infection, arrhythmia, stroke, worsening kidney function, blood loss, groin hematoma, limb loss, emergency coronary artery bypass grafting, and even were discussed with the patient and all questions were answered. The patient understood and wished to proceed. Time out called, patient name, date of , medical record number, allergies, procedure performed, identify Chief Recordist, patient and staff member concurred with accurate data, procedure carried on. Findings: LEFT HEART CATHETERIZATION FINDINGS: 1. Left main: The left main coronary artery is widely patent without any significant obstructive disease. 2. Left anterior descending: The LAD and the diagonal branches have mild luminal irregularities without any significant obstructive angiographic disease. 3. Left circumflex: The left circumflex artery is co-dominant. The left circumflex artery and the main marginal branches have mild luminal irregularities without any significant obstructive angiographic disease. 4. Right coronary artery: The RCA has mild luminal irregularities without any significant obstructive angiographic disease. The RCA is a co-dominant vessel. Description of Procedure: Informed consent signed and placed in the chart. Patient transferred to mill labor supervisor room. Prepped and draped in usual sterile fashion. 2% lidocaine injected subcutaneously in right wrist area. 22-gauge venipuncture catheter used to access the right radial artery under ultrasound guidance. 6-FR slender sheath placed in right radial artery. Nitroglycerine and Verapamil were given intraarterial through the sheath. Versacore wire advanced under fluoroscopy 5F Tig 4 diagnostic catheter engaged Left Main Coronary Artery. However, Tig catheter kept disengaging. 5F FL 4 diagnostic catheter engaged in the left main. 5F Tig 4 diagnostic catheter engaged Right Coronary Artery Multiple orthogonal angiogram obtained and reviewed Hemostasis was achieved by application of TR band. Disposition: Floor Plan: The patient will be monitored in the recovery area. Continue aggressive medical therapy and risk factor modification. ? Kavin Gonzalez M.D. Interventional Cardiology
--- NOTE | 2024-03-28 10:17 | PC.NURSE ---
Patient transported to cardiac cath laboratory technician at 1017 via stretcher. Patient transported by cath laboratory technician team.
--- NOTE | 2024-03-28 11:28 | PM.DS ---
DS: Admitting Diagnosis Discharge Date 03/28/2024 Admitting Diagnosis Chest pain DS: Discharge Diagnosis Discharge Diagnosis (1) Chest pain: Code(s): R07.9 - Chest pain, unspecified Status: Acute DS: Summary Hospital Course Hospital Course: Patient admitted for chest pain, concerning for possible unstable angina. Underwent cardiac catheterization 03/28 which showed angiographically normal coronary arteries. Suspect her chest pain may be due to coronary spasm, microvascular angina, etc. Transthoracic echocardiogram with preserved LVEF with no wall motion abnormalities. Patient already on Amlodipine 5mg BID at home. Started Imdur 30mg once daily and Toprol 25mg once daily for antianginal relief. Status at Discharge Cognitive/behavioral status at discharge: Stable Functional status at discharge: independent ambulation Overall status at discharge: patient is back to baseline Time Spent with Patient Time attestation: Total time spent providing and/or coordinating discharge services: Exam Narrative: See H&P note dated 04/28. DS: Data Data Completed and Pending Labs on day of discharge: Labs from last 24 hours 03/28/24 03/27/24 03/27/24 02:01 23:37 20:03 WBC 10.1 H RBC 4.28 Hgb 12.8 Hct 38.0 MCV 88.8 MCH 29.9 MCHC 33.7 RDW 13.4 Plt Count 210 MPV 11.4 H Immature Gran % (Auto) 0.6 H Neut % (Auto) 57.3 Lymph % (Auto) 31.7 [place] % (Auto) 8.1 Eos % (Auto) 1.9 Baso % (Auto) 0.4 Lymph # (Auto) 3.21 H [place] # (Auto) 0.8 H Eos # (Auto) 0.2 Baso # (Auto) 0.0 Abs Immat Gran (auto) 0.06 H Absolute Neuts (auto) 5.8 Absolute Nucleated RBC 0.000 Nucleated RBC % 0.0 PT 13.8 INR 1.0 APTT 28.7 Sodium 136 L Potassium 3.5 Chloride 102 Carbon Dioxide 26 Anion Gap 8 BUN 15 Creatinine 0.60 L Estim Creat Clear Calc 107 Estimated GFR > 60 Glucose 199 H Calcium 9.1 Total Bilirubin 0.3 AST 24 ALT 24 Alkaline Phosphatase 79 Troponin I < 0.012 < 0.012 < 0.012 Total Protein 7.0 Albumin 4.1 Lipase 164 Discharge Plan Discharge Attending physician on discharge: Kavin Gonzalez Discharging Clinician: Kavin Gonzalez Anticipated Discharge Date/Time: 03/28/24 15:00 Patient Disposition: Home, Self-Care Activity: may shower Diet: heart healthy Patient Instructions: Antibiotic Form, Chest Pain (DC), Chest Pain (GEN) Stand Alone Forms: General Discharge Information Follow-up/Referrals: Segundo Elizabeth MD [Physician] - Discharge Medications: New isosorbide mononitrate 30 mg Tablet Extended Release 24 Hr 30 mg PO QAM Qty: 90 3RF metoprolol succinate [Toprol XL] 25 mg Tablet Extended Release 24 Hr 25 mg PO QAM Qty: 90 3RF Continued vitamin E24-nguwk acid 500-400 mcg tablet 1 tablet PO DAILY cholecalciferol (vitamin D3) 2,000 unit tablet 2,000 unit PO DAILY multivitamin Tablet 1 tablet PO DAILY omega-3 fatty acids 1,000 mg capsule 1,000 mg PO DAILY CoQ-10 100 mg PO WEEKLY Rx Instructions: takes on Sundays Fortify Women Probiotic 30 billion cell -50 mg Capsule,Delayed Release(Dr/Ec) 1 cap PO DAILY Iron (ferrous sulfate) 324 mg PO WEEKLY Patient Comments: PRN Rx Instructions: pt. takes on Fridays amlodipine 5 mg tablet 5 mg PO BID levothyroxine [Synthroid] 150 mcg tablet 150 mcg PO DAILY Qty: 30 0RF (DME) OneTouch Ultra Test Strip See Rx Instructions .Route Qty: 100 3RF Rx Instructions: Use 1 strip to check blood sugar daily omeprazole 20 mg capsule,delayed release(DR/EC) 20 mg PO DAILY Qty: 90 1RF ketorolac 10 mg tablet 10 mg PO DAILY PRN (Reason: Pain) Qty: 20 2RF Rx Instructions: for headaches semaglutide 2 mg/dose (8 mg/3 mL) pen injector 2 mg subcut WEEKLY Qty: 24 1RF Rx Instructions: takes
[2024-03-28] MEDS: ISOSORBIDE MONONITRATE 30 MG TAB.ER.24H PO (14:17)
[2024-03-28] MEDS: METOPROLOL SUCCINATE EXT REL 25 MG TABCR PO (14:17)
--- NOTE | 2024-03-28 14:28 | PC.NURSE ---
Patient returned to room 204 from chest pain center at 1428.
[2024-03-28 14:59] LABS: Glucose Point of Care 192 mg/dl (65-105)
== END 2024-03-28 16:07 | disposition home or self-care (01) ==
LOC: ANHED 20:13 → ANHIMU 23:48
PROVIDERS: Admitting Provider Internal Medicine Cardiovascular Disease; Emergency Provider Emergency Medicine; PCP Family Medicine; Visit Provider Internal Medicine
PROC: (CPT 93454; principal; 2024-03-28 10:00)
DX: R07.9 Chest pain, unspecified (principal); I10 Essential (primary) hypertension; E03.9 Hypothyroidism, unspecified; K21.9 Gastro-esophageal reflux disease without esophagitis; E11.59 Type 2 diabetes mellitus with other circulatory complications; E66.9 Obesity, unspecified; Z68.39 Body mass index [BMI] 39.0-39.9, adult; F41.9 Anxiety disorder, unspecified; F32.9 Major depressive disorder, single episode, unspecified; F42.9 Obsessive-compulsive disorder, unspecified; E55.9 Vitamin D deficiency, unspecified; Z79.84 Long term (current) use of oral hypoglycemic drugs; Z79.899 Other long term (current) drug therapy
CPT/HCPCS: 36415; 71046; 80053; 82948; 83690; 84484; 85025; 85610; 85730; 93005; 93454; 99285; A9270; C1769; C1887; C1894; C8929; G0378; J1644; J2003; J2250; J2305; J3010; J7040; Q9957

== ENCOUNTER 2024-10-30 10:44 | Outpatient (CLI) | payer BC, SELFPAY ==
--- NOTE | ~2024-10-30 | MM_ITS ---
EXAMINATION: MM screening yamilex BI w darlene HISTORY: Screening TECHNIQUE: Craniocaudal and mediolateral oblique 3-D tomosynthesis images were obtained and synthetic 2-D images were generated. CAD analysis was submitted and interpreted. COMPARISON: Comparison to multiple prior studies sequentially, with oldest reviewed study dated 03/11. BREAST PARENCHYMAL COMPOSITION: Not dense: There are scattered areas of fibroglandular density. FINDINGS: The left breast is stable without evidence for malignancy. There is a developing mass in th e upper outer quadrant of the right breast, middle third. IMPRESSION: 1. New right breast mass upper outer quadrant, middle third. 2. Additional mammographic views and possible breast ultrasound are recommended. BI-RADS Category 0: Incomplete: Needs additional imaging evaluation. Reviewed, dictated and finalized at location B. IMPRESSION: 1. New right breast mass upper outer quadrant, middle third. 2. Additional mammographic views and possible breast ultrasound are recommended . BI-RADS Category 0: Incomplete: Needs additional imaging evaluation.
== END 2024-10-30 10:45 | disposition home or self-care (01) ==
LOC: MICIMG 10:46
PROVIDERS: PCP Hospitalist; Visit Provider Obstetrics & Gynecology Gynecology
DX: Z12.31 Encounter for screening mammogram for malignant neoplasm of breast (principal); R92.8 Other abnormal and inconclusive findings on diagnostic imaging of breast
CPT/HCPCS: 77063; 77067

== ENCOUNTER 2024-11-12 09:46 | Outpatient (CLI) | payer BC, SELFPAY ==
--- NOTE | ~2024-11-12 | MMUS_ITS ---
EXAMINATION: MM diagnostic yamilex RT w darlene, US breast RT limited INDICATION: 53-year old female; BI-RADS 0, new right breast mass COMPARISON: 10/30/2024 TECHNIQUE: Digital breast tomosynthesis True lateral and spot compression CC and MLO views of the RIG HT breast were obtained with computer-aided detection to assist in interpretation of the study. FINDINGS: There are scattered areas of fibroglandular density. A circumscribed mass persists in the outer central anterior depth within the right breast. Ultrasound was performed for further evaluation. RIGHT BREAST ULTRASOUND FINDINGS: Targeted evaluation of the area of concern was completed. There is a 0.5 x 0.3 x 0.6 cm anechoic sept ated mass at 9:00 location 1 cm from the nipple in the RIGHT breast that correlates to the area of Ma mmographic finding. IMPRESSION: Benign RIGHT breast cyst correlates to mammographic finding. No further investigation necessary. RECOMMENDATION: ANNUAL SCREENING BILATERAL MAMMOGRAPHY BI-RADS 2, BENIGN Reviewed, dictated and finalized at location B. IMPRESSION: Benign RIGHT breast cyst correlates to mammographic finding. No further investi gation necessary. RECOMMENDATION: ANNUAL SCREENING BILATERAL MAMMOGRAPHY BI-RADS 2, BENIGN
== END 2024-11-12 09:47 | disposition home or self-care (01) ==
PROVIDERS: PCP Hospitalist; Visit Provider Obstetrics & Gynecology Gynecology
DX: R92.8 Other abnormal and inconclusive findings on diagnostic imaging of breast (principal)
CPT/HCPCS: 76642; 77061; 77065; G0279